=== PATIENT | female | born 1940 | race Caucasian/White ===

== ENCOUNTER → 2016-03-19 | Day surgery (SDC) | payer OTHER, BC ==
[2016-03-12 12:42] VITALS: Ht 174 cm; Wt 79.5 kg
[~2016-03-19] VITALS: Ht 174 cm; Wt 79.5 kg
[~2016-03-19] MED LIST: 500ML BSS 0.3ML EPI 1:1000PF IRRIG ONE; ACETAMINOPHEN 325 MG TAB PO PRN; AMVISC PLUS 0.8ML SYRINGE INT OCU ONE; ASCO10003 PO; ASPCH81X PO; ATROPINE SULFATE 0.1 MG/ML 5ML SYR IV PRN; BSS FLUSH ONE; CALC-51 PO; CALC0.2510 PO; DOXY-300 PO; ENDOCOAT 0.85ML SYRINGE INT OCU ONE; EpHEDrine SULFATE INJ 50 MG/ML AMP IV PRN; EpINEphrine INJ 1MG/ML AMP 1 MG/ML AMP ONE; LACTATED RINGER'S 1000ML 500 ML IV SCH; LEVO75TA5 PO; LIDOCAINE 4% OP SOLN DROP CHARGE ONE; LIDOCAINE 4% OP SOLN DROP CHARGE OPL SCH; LIDOCAINE HCL 1% MPF 2 ML VIAL ONE; LOSA50TA6 PO; LOSARTAN POTASSIUM PO; MAGN400T6 PO; MIDAZOLAM HCL 1 MG/ML 2ML VIAL ONE; MIX: 4ML BSS 1ML EPI 1:1000 PF TOP ONE; MOXIFLOXACIN OPH SOLN PER DROP CHARGE ONE; MULT-506 PO; POVIDONE-IODINE OP SOLN 30 ML BTL ONE; PRED1SUS3 OPL; PROPARACAINE 0.5% OP SOLN PER DROP CHARGE OPL SCH; SYN50 PO; TOBRAMYCIN/DEXAMETHASONE OPH OINT PER APPLN CHARGE ONE; TRIA37.53 PO; ZNTT/150 PO
--- NOTE | 2016-03-19 06:39 | History & Physical Bridge - SC ---
H&P Re-Evaluation Bridge Note: I have examined the patient, reviewed the History & Physical and in the interval since the performance of the History & Physical I have noted the following changes of clinical significance: No changes noted
[2016-03-19] MEDS: PHENYLEPHRINE HCL 2.5% OP SOLN PER DROP CHARGE OPL SCH ×3 (06:52→07:02)
[2016-03-19] MEDS: CYCLOPENTOLATE HCL 1% OP SOLN PER DROP CHARGE OPL SCH ×3 (06:54→07:04)
[2016-03-19] MEDS: TROPICAMIDE 1% OP SOLN PER DROP CHARGE OPL SCH ×3 (06:55→07:03)
[2016-03-19] MEDS: MOXIFLOXACIN OPH SOLN PER DROP CHARGE OPL SCH ×3 (06:55→07:05)
[2016-03-19 08:08] VITALS: TEMP 36.7
--- NOTE | 2016-03-19 08:09 | [facility] Post Operative Brief Note ---
Immediate Operative Summary Operative Date Mar 19, 2016. Pre-Operative Diagnosis Left Eye Cataract Post-Operative Diagnosis same Procedure(s) Performed Left Cataract Phacoemulsification With Intraocular Lens Implant Surgeon Dr. Ferdinand Alanis Mfts Surgeon(s) 0 Estimated Blood Loss 0 Findings left cataract Specimens none Complication(s) None Disposition
--- NOTE | 2016-03-19 08:10 | [facility] Operative Report ---
Operative Report Phaco with monofocal IOL DATE OF OPERATION: 03/19/16 PREOPERATIVE DIAGNOSIS: Senile nuclear cataract, left eye POSTOPERATIVE DIAGNOSIS: Senile nuclear cataract, left eye PROCEDURE PERFORMED: Phacoemulsification with intraocular lens implantation, left eye SURGEON: Dr. Irving Alanis ANESTHESIA: Topical with 1% intracameral lidocaine and monitored anesthesia care COMPLICATIONS: None DESCRIPTION OF PROCEDURE: After positively identifying the patient both verbally and by wristband in the preoperative area, the left eye was marked as the operative eye. The patient was then brought back to the operating room by the anesthesia and nursing staff where they were given a drop of Lidocaine and betadine into the operative eye. They were then sterilely prepped and draped in the standard fashion typical for ophthalmic surgery. Steri-strips were placed along the upper eyelids to keep the lashes back, and a lid speculum was placed into the operative eye. At this point, a documented time out was performed with members of the ophthalmology, nursing, and anesthesia staffs all agreeing upon the correct patient, correct location for surgery, correct procedure, and correct type and power of intraocular lens to be implanted. The microscope was then swung into position. First, a paracentesis wound was made using a sideport blade. Then, in sequence, 1% preservative-free lidocaine followed by Endocoat viscoelastic was injected into the anterior chamber. Next , the main incision was made with a keratome blade in triplanar fashion. A sharp cystotome was introduced into the eye and used to create a tear in the anterior capsule, which was directed into a continuous curvilinear capsulorrhexis using Utrata forceps. Hydrodissection was then performed with BSS on a flat-tip cannula. Next, the phacoemulsification handpiece was introduced into the eye and used to remove the nucleus in a [id number] fashion. This was done without complication and then the irrigation-aspiration handpiece was introduced into the eye and used to remove all remaining cortical and epinuclear material. Amvisc was then injected into the anterior chamber as well as into the capsular bag and using the lens injector system, an MX60 20.0 D lens, serial number [id number], and expiration date 09/2018 was injected into the capsular bag and rotated into the correct position. Next, the irrigation- aspiration handpiece was used to remove all remaining Amvisc. BSS was used to hydrate the main wound, and then BSS was injected into the paracentesis site to reach physiologic pressure and then the main wound was checked and found to be watertight. The patient was given drops of Vigamox and Tobradex ointment into the operative eye, and then the surrounding area was cleaned and dried. A clear plastic shield was placed over the eye and the patient was then sat up and taken from the operating room by the anesthesia staff having tolerated the procedure well and suffering no complications. DISPOSITION: The patient was returned to the recovery room in stable condition. I attest to the content of the Intraoperative Record and any orders documented therein. Any exceptions are noted below.
--- NOTE | 2016-03-19 08:11 | Discharge Instructions-SurgCtr ---
Discharge Instructions Visit Reason for Visit: Cataract Left Eye Discharge Discharge Diagnosis / Problem: left cataract Discharge Goals Goal(s): Decrease discomfort, Improve function Activity Recommendations Activity Limitations: as noted below Anesthesia . Post Anesthesia Instructions: If you have had General Anesthesia or IV Sedation: * Do not drive today. * Resume driving when surgeon permits. * Do not make important decisions or sign legal documents today. * Call surgeon for: 1. Temperature elevations greater than 101 degrees F. 2. Uncontrollable pain. 3. Excessive bleeding. 4. Persistent nausea and vomiting. 5. Medication intolerance (nausea, vomiting or rash). * For nausea and vomiting use only clear liquids such as: tea, soda, bouillon until nausea subsides, then gradually increase diet as tolerated. * If you have any concerns or questions, call your surgeon's office. If physician is unavailable and it is an emergency, call 911 or go to the nearest emergency room. . Instructions / Follow-Up Instructions / Follow-Up ACTIVITY RECOMMENDATIONS: * Light activities. * You may walk outside, read, watch television. * You may notice redness on the white part of the eye and some blurry vision - this is normal. MEDICATIONS: Resume previous medications unless instructed otherwise by your surgeon. Start all eye drops at 10 am today: * Eye drops (today): Prednisone - one drop in operative eye every 2 hours while awake Ofloxacin - one drop in operative eye every 2 hours while awake SPECIAL CARE INSTRUCTIONS: * Tape plastic shield over eye to sleep at night. Call your doctor at with any concerns or problems. FOLLOW UP VISIT: Follow-up with Dr Alanis at [facility] as scheduled. Diet Recommendations Home Diet: no limitations Procedures Procedures Performed: Left Cataract Phacoemulsification With Intraocular Lens Implant Pending Studies Studies pending at discharge: no Medical Emergencies . Who to Call and When: Medical Emergencies: If at any time you feel your situation is an emergency, please call 911 immediately. . Non-Emergent Contact Non-Emergency issues call your: Surgeon . . "Provider Documentation" section prepared by Irving Alanis.
--- NOTE | 2016-03-19 08:14 | Anesthesia Progress Nt - [facility] ---
Anesthesia Post Op Note Date & Time Mar 19, 2016 at 08:14 Vital Signs Pain Intensity: 0 Vital Signs Past 12 Hours Date Time Temp Pulse Resp B/P Pulse Ox O2 Delivery O2 Flow Rate FiO2 03/19/16 06:44 36.7 53 16 144/85 96 Room Air Notes Mental Status: alert / awake / arousable, participated in evaluation Pt Amnestic to Procedure: Yes Nausea / Vomiting: adequately controlled Pain: adequately controlled Airway Patency, RR, SpO2: stable & adequate BP & HR: stable & adequate Hydration State: stable & adequate Anesthetic Complications: no major complications apparent
[2016-03-19 08:30] VITALS: BP 138/60; PULSE 62; O2SAT 97
== END | disposition home or self-care (01) ==
LOC: X.SURG 06:26
PROVIDERS: ATTEND Ophthalmology
DX: H25.12 Age-related nuclear cataract, left eye (principal); H04.129 Dry eye syndrome of unspecified lacrimal gland; I10 Essential (primary) hypertension; M19.90 Unspecified osteoarthritis, unspecified site; I51.9 Heart disease, unspecified; E07.9 Disorder of thyroid, unspecified; I34.8 Other nonrheumatic mitral valve disorders; Z98.51 Tubal ligation status; Z83.518 Family history of other specified eye disorder

== ENCOUNTER → 2016-04-09 | Day surgery (SDC) | payer OTHER, BC ==
[2016-03-27 14:45] VITALS: Ht 174 cm; Wt 79.5 kg
[~2016-04-09] VITALS: Ht 174 cm; Wt 79.5 kg
[~2016-04-09] MED LIST changes: -EpHEDrine SULFATE INJ 50 MG/ML AMP IV PRN; -LIDOCAINE 4% OP SOLN DROP CHARGE OPL SCH; +LIDOCAINE 4% OP SOLN DROP CHARGE OPR SCH; -LOSARTAN POTASSIUM PO; -PROPARACAINE 0.5% OP SOLN PER DROP CHARGE OPL SCH; +PROPARACAINE 0.5% OP SOLN PER DROP CHARGE OPR SCH
[2016-04-09] MEDS: PHENYLEPHRINE HCL 2.5% OP SOLN PER DROP CHARGE OPR SCH ×3 (06:40→06:49)
[2016-04-09] MEDS: TROPICAMIDE 1% OP SOLN PER DROP CHARGE OPR SCH ×3 (06:40→06:50)
[2016-04-09] MEDS: CYCLOPENTOLATE HCL 1% OP SOLN PER DROP CHARGE OPR SCH ×3 (06:41→06:51)
[2016-04-09] MEDS: MOXIFLOXACIN OPH SOLN PER DROP CHARGE OPR SCH ×3 (06:42→06:52)
--- NOTE | 2016-04-09 07:26 | [facility] Post Operative Brief Note ---
Immediate Operative Summary Operative Date Apr 09, 2016. Pre-Operative Diagnosis Cataract Right Eye Post-Operative Diagnosis Same Procedure(s) Performed Right Cataract Phacoemulsification With Intraocular Lens Implant Surgeon Dr. Alanis Mechanical Product Engineer Surgeon(s) None Estimated Blood Loss None Findings right cataract Specimens None Complication(s) None Disposition
--- NOTE | 2016-04-09 07:27 | [facility] Operative Report ---
Operative Report Phaco with monofocal IOL DATE OF OPERATION: 04/09/16 PREOPERATIVE DIAGNOSIS: Senile nuclear cataract, right eye POSTOPERATIVE DIAGNOSIS: Senile nuclear cataract, right eye PROCEDURE PERFORMED: Phacoemulsification with intraocular lens implantation, right eye SURGEON: Dr. Irving Alanis ANESTHESIA: Topical with 1% intracameral lidocaine and monitored anesthesia care COMPLICATIONS: None DESCRIPTION OF PROCEDURE: After positively identifying the patient both verbally and by wristband in the preoperative area, the right eye was marked as the operative eye. The patient was then brought back to the operating room by the anesthesia and nursing staff where they were given a drop of Lidocaine and betadine into the operative eye. They were then sterilely prepped and draped in the standard fashion typical for ophthalmic surgery. Steri-strips were placed along the upper eyelids to keep the lashes back, and a lid speculum was placed into the operative eye. At this point, a documented time out was performed with members of the ophthalmology, nursing, and anesthesia staffs all agreeing upon the correct patient, correct location for surgery, correct procedure, and correct type and power of intraocular lens to be implanted. The microscope was then swung into position. First, a paracentesis wound was made using a sideport blade. Then, in sequence, 1% preservative-free lidocaine followed by Endocoat viscoelastic was injected into the anterior chamber. Next , the main incision was made with a keratome blade in triplanar fashion. A sharp cystotome was introduced into the eye and used to create a tear in the anterior capsule, which was directed into a continuous curvilinear capsulorrhexis using Utrata forceps. Hydrodissection was then performed with BSS on a flat-tip cannula. Next, the phacoemulsification handpiece was introduced into the eye and used to remove the nucleus in a [id number]-hie-[id number] fashion. This was done without complication and then the irrigation-aspiration handpiece was introduced into the eye and used to remove all remaining cortical and epinuclear material. Amvisc was then injected into the anterior chamber as well as into the capsular bag and using the lens injector system, an MX60 24.0 D lens, serial number [id number], and expiration date 07/2018 was injected into the capsular bag and rotated into the correct position. Next, the irrigation- aspiration handpiece was used to remove all remaining Amvisc. BSS was used to hydrate the main wound, and then BSS was injected into the paracentesis site to reach physiologic pressure and then the main wound was checked and found to be watertight. The patient was given drops of Vigamox and Tobradex ointment into the operative eye, and then the surrounding area was cleaned and dried. A clear plastic shield was placed over the eye and the patient was then sat up and taken from the operating room by the anesthesia staff having tolerated the procedure well and suffering no complications. DISPOSITION: The patient was returned to the recovery room in stable condition. I attest to the content of the Intraoperative Record and any orders documented therein. Any exceptions are noted below.
[2016-04-09 07:28] VITALS: TEMP 36.5
--- NOTE | 2016-04-09 07:28 | Discharge Instructions-SurgCtr ---
Discharge Instructions Visit Reason for Visit: Cataract Right Eye Discharge Discharge Diagnosis / Problem: right cataract Discharge Goals Goal(s): Decrease discomfort, Improve function Activity Recommendations Activity Limitations: as noted below Anesthesia . Post Anesthesia Instructions: If you have had General Anesthesia or IV Sedation: * Do not drive today. * Resume driving when surgeon permits. * Do not make important decisions or sign legal documents today. * Call surgeon for: 1. Temperature elevations greater than 101 degrees F. 2. Uncontrollable pain. 3. Excessive bleeding. 4. Persistent nausea and vomiting. 5. Medication intolerance (nausea, vomiting or rash). * For nausea and vomiting use only clear liquids such as: tea, soda, bouillon until nausea subsides, then gradually increase diet as tolerated. * If you have any concerns or questions, call your surgeon's office. If physician is unavailable and it is an emergency, call 911 or go to the nearest emergency room. . Instructions / Follow-Up Instructions / Follow-Up ACTIVITY RECOMMENDATIONS: * Light activities. * You may walk outside, read, watch television. * You may notice redness on the white part of the eye and some blurry vision - this is normal. MEDICATIONS: Resume previous medications unless instructed otherwise by your surgeon. Start all eye drops at 9:30 am today: * Eye drops (today): Prednisone - one drop in operative eye every 2 hours while awake Ofloxacin - one drop in operative eye every 2 hours while awake SPECIAL CARE INSTRUCTIONS: * Tape plastic shield over eye to sleep at night. Call your doctor at with any concerns or problems. FOLLOW UP VISIT: Follow-up with Dr Alanis at [facility] as scheduled. Diet Recommendations Home Diet: no limitations Procedures Procedures Performed: Right Cataract Phacoemulsification With Intraocular Lens Implant Pending Studies Studies pending at discharge: no Medical Emergencies . Who to Call and When: Medical Emergencies: If at any time you feel your situation is an emergency, please call 911 immediately. . Non-Emergent Contact Non-Emergency issues call your: Surgeon . . "Provider Documentation" section prepared by Irving Alanis.
--- NOTE | 2016-04-09 07:45 | Anesthesia Progress Nt - [facility] ---
Anesthesia Post Op Note Date & Time Apr 09, 2016 at 07:45 Vital Signs Pain Intensity: 0 Vital Signs Past 12 Hours Date Time Temp Pulse Resp B/P Pulse Ox O2 Delivery O2 Flow Rate FiO2 04/09/16 07:28 36.5 48 20 112/75 96 Room Air 04/09/16 06:30 36.6 61 20 135/84 96 Room Air Notes Mental Status: alert / awake / arousable, participated in evaluation Pt Amnestic to Procedure: Yes Nausea / Vomiting: adequately controlled Pain: adequately controlled Airway Patency, RR, SpO2: stable & adequate BP & HR: stable & adequate Hydration State: stable & adequate Anesthetic Complications: no major complications apparent
[2016-04-09 07:52] VITALS: BP 129/69; PULSE 54; O2SAT 97
== END | disposition home or self-care (01) ==
LOC: X.SURG 06:04
PROVIDERS: ATTEND Ophthalmology
DX: H25.11 Age-related nuclear cataract, right eye (principal); Z98.42 Cataract extraction status, left eye; H17.9 Unspecified corneal scar and opacity; H04.129 Dry eye syndrome of unspecified lacrimal gland; I10 Essential (primary) hypertension; I34.8 Other nonrheumatic mitral valve disorders; M19.90 Unspecified osteoarthritis, unspecified site; E07.9 Disorder of thyroid, unspecified; Z98.890 Other specified postprocedural states; Z98.51 Tubal ligation status

== ENCOUNTER → 2016-08-18 | Outpatient (CLI) | payer OTHER, BC ==
[~2016-08-18] MED LIST changes: -500ML BSS 0.3ML EPI 1:1000PF IRRIG ONE; -ACETAMINOPHEN 325 MG TAB PO PRN; -AMVISC PLUS 0.8ML SYRINGE INT OCU ONE; -ATROPINE SULFATE 0.1 MG/ML 5ML SYR IV PRN; -BSS FLUSH ONE; -ENDOCOAT 0.85ML SYRINGE INT OCU ONE; -EpINEphrine INJ 1MG/ML AMP 1 MG/ML AMP ONE; -LACTATED RINGER'S 1000ML 500 ML IV SCH; -LIDOCAINE 4% OP SOLN DROP CHARGE ONE; -LIDOCAINE 4% OP SOLN DROP CHARGE OPR SCH; -LIDOCAINE HCL 1% MPF 2 ML VIAL ONE; -MIDAZOLAM HCL 1 MG/ML 2ML VIAL ONE; -MIX: 4ML BSS 1ML EPI 1:1000 PF TOP ONE; -MOXIFLOXACIN OPH SOLN PER DROP CHARGE ONE; -POVIDONE-IODINE OP SOLN 30 ML BTL ONE; -PROPARACAINE 0.5% OP SOLN PER DROP CHARGE OPR SCH; -TOBRAMYCIN/DEXAMETHASONE OPH OINT PER APPLN CHARGE ONE
--- NOTE | 2016-08-18 15:32 | DIAGNOSTIC IMAGING REPORT ---
CHEST 2 VIEWS ROUTINE CLINICAL HISTORY: CRF pain. Edema. COMPARISON STUDY: None 04/04/2014 FINDINGS: Small fixed hernia. Lungs are clear. Diaphragms smooth. IMPRESSION: Small fixed hiatal hernia. Otherwise negative study Electronically signed by: John Pérez M.D. 08/18/2016 3:31 PM Dictated Date/Time: 08/18/2016 3:28 PM
== END | disposition home or self-care (01) ==
LOC: C.RADBC 15:15
PROVIDERS: ATTEND Nurse Practitioner
DX: R60.0 Localized edema (principal); N18.9 Chronic kidney disease, unspecified; K44.9 Diaphragmatic hernia without obstruction or gangrene

== ENCOUNTER → 2016-09-26 | Outpatient (CLI) | payer OTHER, BC ==
--- NOTE | 2016-09-26 16:31 | DIAGNOSTIC IMAGING REPORT ---
BILATERAL LOWER EXTREMITY VENOUS DOPPLER HISTORY: BILATERAL EDEMA OF LOWER EXTREMITY COMPARISON STUDY: None. FINDINGS: There is normal compressibility, flow, and augmentation within the bilateral lower extremity deep venous systems. Evaluation of the calf vessels however is slightly limited secondary to body habitus. IMPRESSION: 1. No DVT within the right or left lower extremity. 2. Limited visualization of the calf vessels secondary to body habitus. Electronically signed by: Robe Cox M.D. 09/26/2016 4:29 PM Dictated Date/Time: 09/26/2016 4:28 PM
== END | disposition home or self-care (01) ==
LOC: C.ULTR 15:47
PROVIDERS: ATTEND Internal Medicine Hematology & Oncology
DX: R60.0 Localized edema (principal); D50.9 Iron deficiency anemia, unspecified

== ENCOUNTER → 2016-09-30 | Outpatient (CLI) | payer OTHER, BC ==
--- NOTE | 2016-09-30 15:31 | DIAGNOSTIC IMAGING REPORT ---
CT SCAN OF THE ABDOMEN AND PELVIS WITHOUT IV CONTRAST CLINICAL HISTORY: Anemia. COMPARISON STUDY: Pelvic MRI dated 02/24/2013. TECHNIQUE: CT scan of the abdomen and pelvis is performed from the lung bases to the proximal femora. Images are reviewed in the axial, sagittal, and coronal planes. IV contrast was not administered for this examination as per the front clinician. Note that the examination was performed in suboptimal fashion without IV contrast. Oral contrast was utilized. Automated dose control exposure was utilized. A dose lowering technique was utilized adhering to the principles of ALARA. CT DOSE: 756.31 mGycm FINDINGS: Lung bases: The heart is normal in size and without pericardial effusion. The lung bases are clear. Liver: The unenhanced liver is normal in size, contour, and attenuation. There is no intrahepatic biliary ductal dilatation. Gallbladder: Unremarkable. Spleen: Normal in size and attenuation. Pancreas: Moderately atrophic and grossly unremarkable. Adrenal glands: Unremarkable. Kidneys: The unenhanced kidneys are atrophic and without hydronephrosis. There are no renal calculi identified. A 1.4 cm right renal cyst is identified. Additional scattered subcentimeter cortical hypodensities are suggested. These also likely represent cysts but are too small for definitive characterization. Abdominal vasculature: The abdominal aorta is normal in course and caliber noting mild atherosclerotic calcification. Stomach and bowel: There is a moderate to large hiatal hernia with over 1/3 of the stomach located in the thoracic cavity. The duodenum is normal in configuration. No bowel obstruction is seen. There is moderate colonic diverticulosis without CT evidence of acute diverticulitis. The appendix is well-visualized and normal. Peritoneum: There is no intraperitoneal free air or abdominal ascites. Lymphadenopathy: None. Pelvic viscera: The bladder is normal as visualized. The uterus appears heterogeneous and fibroids are suggested. Subcentimeter hypodensities are noted in the left ovary. These were also seen on the 2013 pelvic MRI. Surgical clips are noted in the pelvis. Skeletal structures: The skeletal structures are osteopenic. There is mild lumbosacral spondylosis. Sclerotic change is noted in the sacroiliac joints and pubic symphysis. No lytic or blastic lesions are seen. IMPRESSION: 1. There are no acute infectious or inflammatory findings in the abdomen or pelvis. 2. Moderate colonic diverticulosis without CT evidence of acute diverticulitis. 3. Moderate to large hiatal hernia. 4. Suspect uterine fibroids. This is similar appearance to the 2013 pelvic MRI where this finding was better characterized. 5. The kidneys are atrophic and without hydronephrosis. 6. Additional findings as above. Electronically signed by: Rafa Buchanan M.D. 09/30/2016 3:30 PM Dictated Date/Time: 09/30/2016 3:24 PM
== END | disposition home or self-care (01) ==
LOC: C.CTS 15:05
PROVIDERS: ATTEND Internal Medicine Hematology & Oncology
DX: D50.9 Iron deficiency anemia, unspecified (principal); K57.30 Diverticulosis of large intestine without perforation or abscess without bleeding; K44.9 Diaphragmatic hernia without obstruction or gangrene; N26.1 Atrophy of kidney (terminal)

== ENCOUNTER → 2017-02-04 | Day surgery (SDC) | payer OTHER, BC ==
[~2017-02-04] VITALS: Ht 172.7 cm; Wt 79.5 kg
[~2017-02-04] MED LIST changes: +FENTANYL CITRATE INJ 50 MCG/1 ML 2 ML VIAL IV ONE; +FENTANYL CITRATE INJ 50 MCG/1 ML 2 ML VIAL ONE; +LIDOCAINE HCL 1% 20 ML VIAL INJ ONE; +LIDOCAINE HCL 1% 20 ML VIAL ONE; +LIDOCAINE/EPINEPHRINE 1% INJ 50 ML VIAL ONE; +MIDAZOLAM HCL 1 MG/ML 2ML VIAL IV ONE; +MIDAZOLAM HCL 1 MG/ML 2ML VIAL ONE; +ORM MISCELLANEOUS MED XX ONE; +SODIUM BICARB 8.4% INJ 50 MEQ/50 ML SYR IV ONE; +SODIUM CHLORIDE 0.9% 1000ML IV SCH
[2017-02-04 07:50] VITALS: BP 141/77; PULSE 74; TEMP 36.9; O2SAT 97; Ht 172.7 cm; Wt 79.5 kg
--- NOTE | 2017-02-04 08:53 | Procedure Note ---
Pre-Mod Sedation Assessment General Date of Moderate Sedation: Feb 04, 2017. Vital Signs: Vital Signs Past 12 Hours Date Time Temp Pulse Resp B/P (MAP) Pulse Ox O2 Delivery O2 Flow Rate FiO2 02/04/17 07:50 36.9 74 18 141/77 (98) 97 Room Air Review Cardiovascular: regular rate, rhythm, no edema Abdomen: normal bowel sounds, non tender Lungs: chest non-tender, lungs clear Airway Class: III Pre-Sedation Airway Assessment Oral Cavity: Capped Teeth, WNL Short Thick Neck: No Hx of Sleep Apnea: No Smoking Status: Never Smoker Mallampati Classification: Class III ASA Classification: Class II Procedure Planning Contraindications-for Mod Sed: None Yes Notes The planned sedation has been discussed with the patient and consent obtained. I have identified the patient, determined the appropriateness of sedation and have assessed the patient immediately prior to the procedure. All medicine(s) and interventions are by my order.
[2017-02-04 09:01] VITALS: BP 141/77; PULSE 74; TEMP 36.9; O2SAT 97
--- NOTE | 2017-02-04 10:34 | Procedure Note ---
Post-Mod Sedation Assessment General Date of Moderate Sedation Feb 04, 2017. Vital Signs: Vital Signs Past 12 Hours Date Time Temp Pulse Resp B/P (MAP) Pulse Ox O2 Delivery O2 Flow Rate FiO2 02/04/17 09:01 36.9 74 18 141/77 97 Room Air 02/04/17 07:50 36.9 74 18 141/77 (98) 97 Room Air Review - Discharge Criteria Vital Signs Stable: Yes Alert/Oriented/Conversant: Yes Returned to Baseline Mental St: Yes Nausea Absent/Minimal: Yes Pain/Discomfort/Absent/Minimal: Yes Normal/Baseline Respirations: Yes Active Bleeding?: No Pt Received D/C Instructions: N/A Prescriptions Given: None Specific Proced. D/C Criteria Distal Pulses Present (Cardiac: N/A Groin site assessed-Card Cath: N/A Voided Prior To Discharge: N/A Discharged Patients Adult Escort/Transportation: Yes
--- NOTE | 2017-02-04 10:38 | [facility] Operative Report ---
Operative Report Operative Date Feb 04, 2017. Pre-Operative Diagnosis venous insufficiency Post-Operative Diagnosis same Procedure(s) Performed Bilateral Greater Saphenous Vein Radiofrequency Ablation, Moderate Concious Sedation [address] Jose Luna [place] Maintenance Technician Surgeon(s) none Estimated Blood Loss 7 ml Findings Dilated bilateral GSVs Specimens none Drains None Anesthesia Moderate Complication(s) None Disposition Recovery Room / PACU Indications Venous insufficiency, Edema and venous claudication Description of Procedure -- Bilateral GSV RFA -- US guided access Left GSV below the knee. Catheter inserted, 3cm from SFJ. Tumescent injected. US confirmed not in deep system. 4:30, 13 cycles of RFA Left GSV. No complications. Patient tolerated well. US confirmed no DVT post procedure. US guided access Right GSV below the knee. Catheter inserted, 3cm from SFJ. Tumescent injected. US confirmed not in deep system. 4:40, 14 cycles of RFA right GSV. No complications. Patient tolerated well. US confirmed no DVT post procedure. I attest to the content of the Intraoperative Record and any orders documented therein. Any exceptions are noted below.
--- NOTE | 2017-02-04 10:39 | Discharge Instructions ---
Discharge Instructions Procedure Procedure Date: Feb 04, 2017. Reason for Visit: Chronic Venous Insufficiency. Discharge Discharge Date: Feb 04, 2017. Discharge Diagnosis: Chronic venous insufficiency Last Recorded Wt (Kilograms): 79.5 Anesthesia Post Anesthesia Instructions: If you have had General Anesthesia or IV Sedation: * Do not drive today. * Resume driving when surgeon permits. * Do not make important decisions or sign legal documents today. * Call surgeon for: 1. Temperature elevations greater than 101 degrees F. 2. Uncontrollable pain. 3. Excessive bleeding. 4. Persistent nausea and vomiting. 5. Medication intolerance (nausea, vomiting or rash). * For nausea and vomiting use only clear liquids such as: tea, soda, bouillon until nausea subsides, then gradually increase diet as tolerated. * If you have any concerns or questions, call your surgeon's office. If physician is unavailable and it is an emergency, call 911 or go to the nearest emergency room. Instructions Activity Recommendations: limitations as noted below, resume regular activity Recommended Home Diet: resume previous diet Allergies: Coded Allergies: NSAIDs (Verified Adverse Reaction, Mild, INCREASE CREATININE LEVEL, ) TOLD NOT TO TAKE DUE TO INCREASING CREATININE LEVEL Sulfamethoxazole w/Trimethoprim (Verified Adverse Reaction, Mild, INCREASE CREATININE LEVEL, 02/04/17) ADVISED NOT TO TAKE, INCREASE CREATININE LEVEL Anastrozole (Verified Adverse Reaction, Unknown, hip pain, 02/04/17) Tamoxifen (Verified Adverse Reaction, Unknown, MULTIPLE UTERINE PROBLEMS, 02/04/17) Follow Up Additional Instructions: Follow instructions as outlined in paperwork from Dr. Luna' office. Up walking today. Follow up Ultrasound as scheduled. ALISE wrap for 48 hours After ALISE wrap removed, wear compression stockings indefinitely. Any severe pain, present to the emergency room for evaluation for DVT. Follow-up with: As scheduled. Caro Moreland Recommendations: Call your doctor if: * Temperature above 101 degrees * Pain not relieved by pain medicine ordered * There is increased drainage or redness from any incision * You have any unanswered questions or concerns. Your Doctors Instructions noted above were prepared by provider Nic Luna. Patient Signature Section: Patient Instructions Signature Page Leisa Clintonaugustine Patient (or Guardian) Signature/Date: I have read and understand the instructions given to me by my caregivers. Caregiver/RN/Doctor Signature/Date: The above-named patient and/or guardian has received patient instructions on this date. + Original Patient Signature Page (only) stays with chart. Please make copy for patient.
[2017-02-04 10:45] VITALS: BP 129/63; PULSE 70; TEMP 36.5; O2SAT 93
== END | disposition home or self-care (01) ==
LOC: C.ACU 07:20
PROVIDERS: ATTEND Internal Medicine Interventional Cardiology
DX: I87.2 Venous insufficiency (chronic) (peripheral) (principal); R60.0 Localized edema; E78.5 Hyperlipidemia, unspecified; I10 Essential (primary) hypertension; E03.9 Hypothyroidism, unspecified; Z86.69 Personal history of other diseases of the nervous system and sense organs; Z98.51 Tubal ligation status; Z90.89 Acquired absence of other organs; Z90.10 Acquired absence of unspecified breast and nipple; Z98.890 Other specified postprocedural states

== ENCOUNTER → 2017-02-12 | Outpatient (CLI) | payer OTHER, BC ==
[~2017-02-12] MED LIST changes: -CALC0.2510 PO; -DOXY-300 PO; -FENTANYL CITRATE INJ 50 MCG/1 ML 2 ML VIAL IV ONE; -FENTANYL CITRATE INJ 50 MCG/1 ML 2 ML VIAL ONE; -LIDOCAINE HCL 1% 20 ML VIAL INJ ONE; -LIDOCAINE HCL 1% 20 ML VIAL ONE; -LIDOCAINE/EPINEPHRINE 1% INJ 50 ML VIAL ONE; -MIDAZOLAM HCL 1 MG/ML 2ML VIAL IV ONE; -MIDAZOLAM HCL 1 MG/ML 2ML VIAL ONE; -ORM MISCELLANEOUS MED XX ONE; -PRED1SUS3 OPL; -SODIUM BICARB 8.4% INJ 50 MEQ/50 ML SYR IV ONE; -SODIUM CHLORIDE 0.9% 1000ML IV SCH; -ZNTT/150 PO
--- NOTE | 2017-02-12 14:28 | MAMMOGRAPHY REPORT ---
BILATERAL DIGITAL SCREENING MAMMOGRAM TOMOSYNTHESIS WITH CAD: 02/12/2017 CLINICAL HISTORY: Asymptomatic. Personal history of breast cancer. TECHNIQUE: Breast tomosynthesis in addition to standard 2D mammography was performed. Current study was also evaluated with a Computer Aided Detection (CAD) system. COMPARISON: Comparison is made to exams dated: 02/11/2016 mammogram, 02/07/2015 mammogram, 02/01/2014 mammogram, 01/25/2014 breast MRI, 01/26/2013 mammogram, and 01/21/2012 mammogram - [facility]. BREAST COMPOSITION: There are scattered areas of fibroglandular density in both breasts. FINDINGS: No suspicious masses, calcifications, or areas of architectural distortion are noted in ei ther breast. There has been no significant interval change compared to prior exams. There are stable postsurgical changes in the right lateral posterior breast from prior lumpectomy. Mild diffuse righ t breast skin thickening is stable and is likely related to prior radiation therapy. Bilateral benig n appearing calcifications are not significantly changed. IMPRESSION: ACR BI-RADS CATEGORY 2: BENIGN There is no mammographic evidence of malignancy. A 1 year screening mammogram is recommended. The pa tient will receive written notification of the results. Approximately 10% of breast cancers are not detected with mammography. A negative mammographic report should not delay biopsy if a clinically suggestive mass is present. Radha Luna M.D. /:02/12/2017 09:38:43 Front Counter Attendant: Sadie Layne, [facility] letter sent: Normal 1/2 BI-RADS Code: ACR BI-RADS Category 2: Benign
== END | disposition home or self-care (01) ==
LOC: C.MAMM 08:42
PROVIDERS: ATTEND Family Medicine
DX: Z12.31 Encounter for screening mammogram for malignant neoplasm of breast (principal)

== ENCOUNTER → 2017-05-15 | Day surgery (SDC) | payer OTHER, BC ==
[2017-05-04 11:49] VITALS: Ht 174 cm; Wt 81.8 kg
[~2017-05-15] VITALS: Ht 174 cm; Wt 81.8 kg
[~2017-05-15] MED LIST changes: +ACETAMINOPHEN 325 MG TAB PO PRN; +ARTIFICIAL TEARS OP OINT 3.5 GM TUBE ONE; +ATROPINE SULFATE 0.1 MG/ML 5ML SYR IV PRN; +BSS FLUSH ONE; +CEFAZOLIN 2000MG IV PUSH 15 ML IV SCH; +DEXAMETHASONE SOD INJ 4 MG/ML VIAL ONE; +ERYTHROMYCIN OP OINT 5 MG/GM 3.5 GM TUBE ONE; +EpHEDrine SULFATE 50MG/5ML SYR ONE; +EpHEDrine SULFATE INJ 50 MG/ML AMP IV PRN; +FENTANYL CITRATE INJ 50 MCG/1 ML 2 ML VIAL IV PRN; +FENTANYL CITRATE INJ 50 MCG/1 ML 2 ML VIAL ONE; +GENTIAN VIOLET TOP SOLN DROP CHARGE ONE; +HYDROmorphone INJ 1 MG/ML SYR IV PRN; +LACTATED RINGER'S 1000ML 1,000 ML IV SCH; +LIDOCAINE HCL 2% 2 ML VIAL (20MG/ML) ONE; +LIDOCAINE/EPINEPHRINE 1% 20 ML VIAL ONE; +METOCLOPRAMIDE HCL INJ 5 MG/ML 2 ML VIAL IV PRN; +MIDAZOLAM HCL 1 MG/ML 2ML VIAL ONE; +ONDANSETRON INJ 2 MG/ML 2 ML VIAL IV PRN; +ONDANSETRON INJ 2 MG/ML 2 ML VIAL ONE; +OXYCODONE/ACETAMINOPHEN 5-325 TAB PO PRN; +POVIDONE-IODINE OP SOLN 30 ML BTL ONE; +PRLSR20 PO; +PROPOFOL IV EMULSION 10 MG/ML 20 ML VIAL IV ONE; +RIVA1.5T PO; +SIMV20TA2 PO; +SODIUM CHLORIDE 0.9% 1000ML 1,000 ML IV SCH; +VALA500T60 PO
--- NOTE | 2017-05-15 08:13 | [facility] Post Operative Brief Note ---
Immediate Operative Summary Operative Date May 15, 2017. Pre-Operative Diagnosis Dermatochalasis Post-Operative Diagnosis same Procedure(s) Performed Bilateral Upper Blepharoplasty Surgeon Dr. Kerri Jacobs Leasing Professional Surgeon(s) Rayne Jack PA-C, Cheri Ruth. MSIII Estimated Blood Loss 1 mL Findings Consistent with Post-Op Diagnosis Specimens None Anesthesia Type General Complication(s) none Disposition Disposition: Recovery Room / PACU
--- NOTE | 2017-05-15 08:18 | Discharge Instructions ---
Discharge Instructions Date of Service May 15, 2017. Admission Reason for Admission: Dermatochalasis Discharge Discharge Diagnosis / Problem: dermatochalasis Discharge Goals Goal(s): Decrease discomfort, Improve function Activity Recommendations Activity Limitations: per Instructions/Follow-up section ACTIVITY RECOMMENDATIONS: __Normal activities _x_No bending, lifting or straining __No driving __Driving allowed when you are off pain medications _x_Walking permitted __You should have help at home for ___ days DRESSINGS: _x_No dressings required __Keep dressings dry/in place until first office visit __Remove dressings ___ and leave dressings off _x_Apply ice _at least 3 days- 20 minutes on/ 20 minutes off while awake __Remove dressings and reapply garment _x_Apply antibiotic ointment (prescribed to you at your pre-op appointment) to wounds 3-4 times/day for 10 days BATHING: __Keep dressings dry x__Sponge bathing permitted _x_Showering permitted ON THURSDAY _x_No swimming, hot tubs or soaking in a tub MEDICATIONS: Resume previous medications unless instructed otherwise by your surgeon. _x_Do not use aspirin, Motrin, Advil or Ibuprofen as these may promote bleeding. Please use Tylenol. _x_Prescription(s) provided: pain medication and antibiotic ointment were prescribed to you at your last office visit OTHER INSTRUCTIONS: __Record drain output 2-3 times per day SPECIAL CARE INSTRUCTIONS: * It is normal to have a mild fever after surgery. If your temperature is higher than 101.5 degrees F, please call the office at [phone]. * Constipation is a typical side effect of pain medication. An over-the- counter stool softener will help relieve this. * Leaking around surgical drains may occur and should not cause concern. Sometimes these drains become clogged. If this happens, remove the bulb and milk the clot out of the tube, then replace the bulb. * Drainage from wounds after liposuction is normal and should be expected. Garments will become soiled. You should protect furniture and bedding. This drainage should mostly subside within 2-3 days. Leave garments in place unless instructed to remove them. * If you have unusual drainage from a wound or are concerned you have an infection or have any questions or concerns, please call the office at [phone]. FOLLOW UP VISIT: If not already scheduled, please call the office, , when you return home after surgery to schedule an appointment to be seen in _5-7__ days. . Current Hospital Diet Patient's current hospital diet: Discharge Diet Recommended Diet: Regular Diet Procedures Procedures Performed: Bilateral Upper Blepharoplasty Pending Studies Studies pending at discharge: no Medical Emergencies . Who to Call and When: Medical Emergencies: If at any time you feel your situation is an emergency, please call 911 immediately. . Non-Emergent Contact Non-Emergency issues call your: Primary Care Provider, Surgeon . "Provider Documentation" section prepared by Rayne Jack. . [place] Drug Monitoring Program Search Results: no issues identified
[2017-05-15 09:17] VITALS: TEMP 36.3
--- NOTE | 2017-05-15 09:56 | Anesthesia Progress Nt - [facility] ---
Anesthesia Post Op Note Date & Time May 15, 2017 at 09:56 Vital Signs Pain Intensity: 0 Vital Signs Past 12 Hours Date Time Temp Pulse Resp B/P (MAP) Pulse Ox O2 Delivery O2 Flow Rate FiO2 05/15/17 09:17 36.3 76 18 128/75 (92) 95 Room Air 05/15/17 09:11 121/77 05/15/17 09:10 70 19 05/15/17 09:10 73 19 94 05/15/17 09:07 36.3 78 20 121/77 95 Room Air 05/15/17 09:06 126/75 05/15/17 09:05 70 18 05/15/17 09:05 69 18 99 05/15/17 09:01 122/78 05/15/17 09:00 71 8 100 05/15/17 09:00 71 8 05/15/17 08:56 119/77 05/15/17 08:55 86 19 05/15/17 08:55 76 19 96 05/15/17 08:51 126/82 05/15/17 08:50 88 29 91 05/15/17 08:50 93 29 05/15/17 08:46 124/77 05/15/17 08:45 68 18 98 05/15/17 08:45 69 18 05/15/17 08:41 126/65 05/15/17 08:40 87 19 98 05/15/17 08:40 80 19 05/15/17 08:36 133/72 05/15/17 08:35 95 17 98 05/15/17 08:35 87 17 05/15/17 08:31 132/77 05/15/17 08:30 95 28 100 05/15/17 08:30 93 28 05/15/17 08:26 132/78 05/15/17 08:25 94 16 100 05/15/17 08:25 89 16 05/15/17 08:20 95 13 05/15/17 08:20 95 13 133/78 99 05/15/17 08:20 36.1 95 16 133/78 99 Mask 6 05/15/17 06:30 36.5 72 16 132/85 (101) 95 Room Air Notes Mental Status: alert / awake / arousable, participated in evaluation Pt Amnestic to Procedure: Yes Nausea / Vomiting: adequately controlled Pain: adequately controlled Airway Patency, RR, SpO2: stable & adequate BP & HR: stable & adequate Hydration State: stable & adequate Anesthetic Complications: no major complications apparent
[2017-05-15 09:58] VITALS: BP 123/84; PULSE 65; O2SAT 95
--- NOTE | 2017-05-15 16:31 | OPERATIVE REPORT ---
DATE OF OPERATION: 05/15/2017 PREOPERATIVE DIAGNOSIS: Bilateral upper eyelid dermatochalasis. POSTOPERATIVE DIAGNOSIS: Same. PROCEDURE: Bilateral noncosmetic upper lid blepharoplasty. SURGEON: Dr. Zita Jacobs. CHORAL DIRECTOR: Rayne Jack PA-C. ANESTHESIA: General. COMPLICATIONS: None. 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 She felt that her excess skin was interfering with daily activities such as driving and sewing. 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 She failed her visual field testing and had a substantial improvement with taping of her lids and therefore was felt to be a good candidate for noncosmetic upper blepharoplasty. BRIEF DESCRIPTION OF THE PROCEDURE: The risks, benefits and alternatives of the procedure were explained to the patient who agreed and signed consent. She was identified and marked in the preoperative holding area. She was brought to the operating room where she was positioned supine and placed under anesthesia without incident. Surgical site was prepped and draped sterilely. A time-out procedure was performed. The surgical site markings were placed. The inferior incision was marked at 8 mm above the ciliary margin just at the supratarsal crease bilaterally. A trapezoidal shaped incision was marked, taking care not to cross the medial punctum medially and carrying the lateral aspect into the lateral canthal area into one of the gakona's feet. Superior portion of the incision was marked and this was marked 1 cm beneath the brow. Aj forceps was used to pinch the skin to ensure reasonable possibility of wound closure without lagophthalmos. Similar markings were applied on the right side. I began with the left side. I attempted to place corneal protectors but due to the small aperture of her lids, I was unable to place these. 1% lidocaine with epinephrine was used to anesthetize the upper lids bilaterally. I began with the left side. Incisions as described above were made using 15 blade scalpel. Skin was removed from the underlying orbicularis muscle in a lateral to medial direction using electrocautery taking care to provide hemostasis throughout dissection. Once the skin had been removed and hemostasis was achieved, I opened the orbital septum along the medial compartment. There was minimal return of fat and a very small resection of medial fat was undertaken. The 6-0 nylon sutures were used to reapproximate the incisions beginning in the pupillary line and then closing in a lateral to medial direction. Once the procedure was completed, erythromycin ophthalmic ointment was placed to the incisions after the eyes were irrigated with balanced salt solution. An identical procedure was undertaken on the right side. The procedure was tolerated well. The patient was awakened and transferred to recovery in satisfactory condition. Estimated blood loss was 1 mL. Rayne Jack PA-C was present and scrubbed throughout the entire procedure and was instrumental in providing retraction as well as assisting in simultaneous wound closure. I attest to the content of the Intraoperative Record and any orders documented therein. Any exception s are noted below.
== END | disposition home or self-care (01) ==
LOC: X.SURG 06:08
PROVIDERS: ATTEND Plastic Surgery
DX: H02.833 Dermatochalasis of right eye, unspecified eyelid (principal); H02.836 Dermatochalasis of left eye, unspecified eyelid; I10 Essential (primary) hypertension; I48.92 Unspecified atrial flutter; I87.2 Venous insufficiency (chronic) (peripheral); E78.5 Hyperlipidemia, unspecified; E03.9 Hypothyroidism, unspecified; Z85.3 Personal history of malignant neoplasm of breast; Z90.10 Acquired absence of unspecified breast and nipple; Z98.51 Tubal ligation status; Z98.890 Other specified postprocedural states; Z88.1 Allergy status to other antibiotic agents; Z79.82 Long term (current) use of aspirin; Z79.01 Long term (current) use of anticoagulants; Z79.899 Other long term (current) drug therapy; Z82.3 Family history of stroke

== ENCOUNTER → 2017-06-08 | Outpatient (CLI) | payer OTHER, BC ==
[~2017-06-08] MED LIST changes: -ACETAMINOPHEN 325 MG TAB PO PRN; -ARTIFICIAL TEARS OP OINT 3.5 GM TUBE ONE; -ASPCH81X PO; -ATROPINE SULFATE 0.1 MG/ML 5ML SYR IV PRN; -BSS FLUSH ONE; -CEFAZOLIN 2000MG IV PUSH 15 ML IV SCH; -DEXAMETHASONE SOD INJ 4 MG/ML VIAL ONE; -ERYTHROMYCIN OP OINT 5 MG/GM 3.5 GM TUBE ONE; -EpHEDrine SULFATE 50MG/5ML SYR ONE; -EpHEDrine SULFATE INJ 50 MG/ML AMP IV PRN; -FENTANYL CITRATE INJ 50 MCG/1 ML 2 ML VIAL IV PRN; -FENTANYL CITRATE INJ 50 MCG/1 ML 2 ML VIAL ONE; -GENTIAN VIOLET TOP SOLN DROP CHARGE ONE; -HYDROmorphone INJ 1 MG/ML SYR IV PRN; -LACTATED RINGER'S 1000ML 1,000 ML IV SCH; -LIDOCAINE HCL 2% 2 ML VIAL (20MG/ML) ONE; -LIDOCAINE/EPINEPHRINE 1% 20 ML VIAL ONE; -METOCLOPRAMIDE HCL INJ 5 MG/ML 2 ML VIAL IV PRN; -MIDAZOLAM HCL 1 MG/ML 2ML VIAL ONE; -ONDANSETRON INJ 2 MG/ML 2 ML VIAL IV PRN; -ONDANSETRON INJ 2 MG/ML 2 ML VIAL ONE; -OXYCODONE/ACETAMINOPHEN 5-325 TAB PO PRN; -POVIDONE-IODINE OP SOLN 30 ML BTL ONE; -PROPOFOL IV EMULSION 10 MG/ML 20 ML VIAL IV ONE; -SODIUM CHLORIDE 0.9% 1000ML 1,000 ML IV SCH
--- NOTE | 2017-06-08 13:41 | DIAGNOSTIC IMAGING REPORT ---
BILATERAL KNEES 2 VIEWS EACH HISTORY: BILATERAL KNEE PAIN COMPARISON: None. FINDINGS: There is no fracture or dislocation. Faint chondrocalcinosis. Small bilateral knee effusions. Tiny patellar osteophytes. Cartilage spaces are maintained for age. No radiopaque foreign bodies. IMPRESSION: 1. Chondrocalcinosis. 2. Small bilateral knee effusions. 3. Mild patellofemoral osteoarthritis. Electronically signed by: Roly Dee M.D. 06/08/2017 1:39 PM Dictated Date/Time: 06/08/2017 1:37 PM
== END | disposition home or self-care (01) ==
LOC: C.RAD1850 13:16
PROVIDERS: ATTEND Family Medicine
DX: M25.569 Pain in unspecified knee (principal); M11.269 Other chondrocalcinosis, unspecified knee

== ENCOUNTER 2021-07-17 17:25 | Observation (INO) ==
[2021-07-17 19:07] LABS: Basophils # (auto) 0.02 K/uL (0-0.2); Basophils % (auto) 0.3 %; Eosinophils # (auto) 0.11 K/uL (0-0.5); Eosinophils % (auto) 1.6 %; Hematocrit (blood only) 39.7 % (37-47); Hemoglobin 13.5 g/dL (12.0-16.0); Immature Granulocytes # (auto) 0.01 K/uL (0.00-0.02); Immature Granulocytes % (auto) 0.1 %; Lymphocytes # (auto) 0.81 K/uL (1.2-3.4); Lymphocytes % (auto) 11.8 %; Mean Corpuscular Hemoglobin 35.5 pg (25-34); Mean Corpuscular Volume 104.5 fL (80-100); Monocytes # (auto) 0.44 K/uL (0.11-0.59); Monocytes % (auto) 6.4 %; Neutrophils # (auto) 5.47 K/uL (1.4-6.5); Neutrophils % (auto) 79.8 %; Platelet Count 175 K/uL (130-400); RDW Coefficient of Variation 14.5 % (11.5-14.5); RDW Standard Deviation 55.6 fL (36.4-46.3); White Blood Count 6.86 K/uL (4.8-10.8)
--- NOTE | 2021-07-17 19:09 | XRay Report ---
SINGLE VIEW CHEST CLINICAL HISTORY: Dyspnea. FINDINGS: An AP, portable, upright chest radiograph is compared to study dated 08/30/2020 and correlate d with chest CT dated 07/16/2021. There is a moderate to large hiatal hernia. The cardiomediastinal si lhouette is unremarkable. Foci of parenchymal scarring are seen throughout both lungs, greatest at th e apices. There is no lobar consolidation or large pleural effusion. No pneumothorax is seen. The ske letal structures are osteopenic. The bony thorax is grossly intact. IMPRESSION: 1. No acute cardiopulmonary abnormality is identified. No significant change from yesterday's chest C T. 2. Moderate to large hiatal hernia. 3. Foci of parenchymal scarring are again seen throughout both lungs. ACT 112: Negative or not required by law. Electronically signed by: Rafa Buchanan M.D. 07/17/2021 7:08 PM
[2021-07-17 19:16] LABS: INR 1.2 (0.9-1.1); Partial Thromboplastin Ratio 1.4; Partial Thromboplastin Time 38.5 Seconds (21.0-31.0); Prothrombin Time 12.4 Seconds (9.0-12.0)
[2021-07-17 19:23] LABS: Albumin Globulin Ratio 1.4 (0.9-2); BUN Creatinine Ratio 14.3 (10-20); Bilirubin,Total 0.6 mg/dl (0.2-1.0); Calcium 9.6 mg/dl (8.5-10.1); Creatinine Clr Calc Pharmacy 20.8 ml/min; Est GFR (African American) 24.8 ml/min; Est GFR (Non-African American) 21.4 ml/min; Globulin 2.9 gm/dl (2.5-4.0); Magnesium 1.4 mg/dl (1.7-2.4); Potassium 3.8 mmol/L (3.5-5.1); Total Protein 6.9 gm/dl (6.0-8.3)
[2021-07-17] MEDS ORDERED: SODIUM CHLORIDE 0.9% 1000ML 500 ML IV ONE (21:17)
[2021-07-17] MEDS ORDERED: MAGNESIUM SULFATE / D5W 1 GM/100 ML BAG IV STA (21:18)
--- NOTE | 2021-07-18 00:09 | History & Physical Report ---
Date of Service July 18, 2021 Assessment & Plan (1) Rigors: Plan: 81-year-old female with history of endometrial carcinoma on Keytruda and lenvatinib presenting with 2 days of chills and rigors. Unclear source of infection. Follow cultures Check procalcitonin Tylenol as needed for pain or fever (2) CKD (chronic kidney disease), stage III: Plan: Mild elevation of BUN and creatinine Hold potentially nephrotoxic agents Monitor renal function and I's/O (3) Endometrial cancer: Plan: Continue Keytruda and lenvatinib Continue Valcyte (4) HTN (hypertension): Plan: Chronic. Stable. Blood pressure = 102/69. Continue triamterene hydrochlorothiazide Continue to monitor (5) Dyslipidemia: Plan: Chronic. Stable on medications Continue simvastatin 20 mg p.o. nightly (6) Atrial flutter: Plan: Rate controlled Continue rivaroxaban Plan: FENLR at 100 mL/h x 2 L, magnesium repletion x3 g with repeat level in a.m., regular diet as tolerated ProphylaxisSCDs Codefull Dispoadmit to medical History of Present Illness Chief Complaint: Chills, diarrhea, shortness of breath Primary Care Provider: Yoli Laureano DO Mrs. Pabon is an 81-year-old female with history of endometrial cancer presently on Keytruda and lenvatinib therapy presenting with 2 days of chills and rigors. Patient reports that she had a CT scan performed 2 days ago for routine screening purposes. She first felt cold with some body shakes there but attributed it to the cold room in which she was waiting. After the study she returned home and went to bed at 8 PM. She woke at 11:00 PM with body shakes and chills. She is also had several episodes of watery diarrhea as well as shortness of breath. She denies fever and states that her body temperature is actually slightly lower than normal approximately 97.1. No additional complaints at this time. Patient did have a cystoscopy on 07/11/2021 with right retrograde pyelogram and stent exchange performed by urology. The procedure was well-tolerated without complications. In the ER she is afebrile, hemodynamically stable, no acute distress Allergies Allergy/AdvReac Type Severity Reaction Status Date / Time anastrozole AdvReac Intermediate Hip pain Verified 07/17/21 22:42 tamoxifen AdvReac Intermediate Uterine Verified 07/17/21 22:42 problems NSAIDS (Non-Steroidal AdvReac Mild Elevated Verified 07/17/21 22:42 Anti-Inflamma creatinine sulfamethoxazole AdvReac Mild Elevated Verified 07/17/21 22:42 creatinine trimethoprim AdvReac Mild Elevated Verified 07/17/21 22:42 creatinine Home Medications Medication Instructions Recorded Confirmed Type ascorbic acid (vitamin C) 1,000 mg 1 g PO QAM 03/27/18 07/17/21 History tablet (Vitamin C) levothyroxine 50 mcg tablet 50 mcg PO 2XWK 03/27/18 07/17/21 History levothyroxine 75 mcg tablet 75 mcg PO 5XWK 03/27/18 07/17/21 History magnesium oxide 400 mg PO QAM 03/27/18 07/17/21 History simvastatin 20 mg tablet 20 mg PO HS 03/27/18 07/17/21 History triamterene 37.5 1 cap PO PM 03/27/18 07/17/21 History mg-hydrochlorothiazide 25 mg capsule valacyclovir 1 gram tablet 0.5 tab PO HS 03/27/18 07/17/21 History pantoprazole 40 mg tablet,delayed 40 mg PO QA 06/21/18 07/17/21 History release (Protonix) acetaminophen 650 mg 650 mg PO Q8H PRN tab 09/29/18 07/17/21 History tablet,extended release duloxetine 60 mg capsule,delayed 60 mg PO QA 07/31/20 07/17/21 History release multivitamin 1 tab PO QAM 08/30/20 07/17/21 History olmesartan 20 mg tablet 20 mg PO QA 08/30/20 07/17/21 History ondansetron 4 mg oral soluble film 4 mg PO QA 03/25/21 07/17/21 History rivaroxaban 15 mg tablet 15 mg PO QDD #90 tab 07/11/21 07/17/21 Rx phenazopyridine 100 mg tablet 100 mg PO BID PRN #7 tab 07/12/21 07/17/21 Rx (Pyridium) Keytruda Pill 1 tab PO DAILY 07/17/21 07/17/21 History lenvatinib 10 mg/day (10 mg x 1) 10 mg PO QPM 07/17/21 07/17/21 History capsule (Lenvima) Past Med/Surg History Medical History (Updated 07/18/21 @ 01:39 by Stefanie Salazar DO) Anemia s/p iron transfusions (last iron transfusion 2018) Atrial flutter Xarelto > no pacer > well controlled at present per pt follows with Dr. 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 Sadie Allen Surgical History H/O lumpectomy 2009 - Right Breast History of bilateral tubal ligation 1983 History of colonoscopy 2016 AND 2020 History of cystoscopy WITH STENT 12/17/2020: MAC. Anesthesia postop progress note: "The patient is awake and comfortable in recovery. Her vital signs are stable. The patient's SpO2 is 94 on room air but has dropped down to 89 when resting. She was given an incentive spirometer and is now maintaining her SpO2 in the 90s." 09/05/2020: MAC. No issues per anesthesia postop progress note. History of dilatation and curettage 2012, 06/21/2018 History of esophagogastroduodenoscopy (EGD) 03/2018 History of robot-assisted laparoscopic hysterectomy 08/12/18 - Bilateral Salpingo-oophorectomy bilateral pelvic, right para-aortic node sampling Nausea and vomiting after administration of anesthetic agent HX OF POST OP NAUSEA YRS AGO Family History Mother , Passed age 97 of stroke complications she had 11 years prior Stroke Father , Passed in low 70's of COPD/Emphysema Complications Emphysema of lung Sister Breast cancer, Onset Age: 65 Lumpectomy & Radiation - Alive and well now Sister No problems noted. Daughter No problems noted. Daughter No problems noted. Daughter No problems noted. Son No problems noted. Son No problems noted. 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 Feels Safe at Home: Yes Childhood Exposure to Second-Hand Smoke: Yes caffeine: Yes (Iced Tea ) Dental Care, Regularly: Yes Assistive Devices: Glasses Review of Systems Review of Systems: All systems reviewed & are unremarkable except as noted in HPI & below Physical Exam Physical Exam: General: patient resting comfortably, NAD, non-toxic in appearance, AA&O x 4 Skin: warm, dry, intact, no rashes or lesions HEENT: NC/AT, PERRL, EOMI, anicteric sclera, conjunctiva without injection, external ear normal to inspection and nontender, nares patent, moist mucus membranes, dentition intact, no oropharyngeal lesions, neck supple, trachea midline, no LAD, no thyromegaly, no JVD Heart: +S1/S2, regular, no m/r/g Lungs: equal air entry bilaterally, no rales/rhonchi/wheezes Abd: +BS, soft, NT/ND, no masses/organomegaly/ascites Ext: warm, 2+ pulses in UE/LE bilaterally, no clubbing/cyanosis or edema Neuro: nonfocal, patient AA&O x 4, speech intact, no facial droop, moving all extremities on command with equal strength 5/5 Results & Data Results & Data ([facility]) Vital Signs (Past 12 Hours) Vital Signs Temp Pulse Resp BP Pulse Ox 07/17/21 23:54 99 07/17/21 17:36 36.8 C 88 18 102/69 96 Laboratory Results Laboratory Results WBC 6.86 K/uL (4.8-10.8) 07/17/21 18:52 RBC 3.80 M/uL (4.2-5.4) L 07/17/21 18:52 Hgb 13.5 g/dL (12.0-16.0) 07/17/21 18:52 Hct 39.7 % (37-47) 07/17/21 18:52 MCV 104.5 fL (80-100) H 07/17/21 18:52 MCH 35.5 pg (25-34) H 07/17/21 18:52 MCHC 34.0 g/dL (32-36) 07/17/21 18:52 RDW Std Deviation 55.6 fL (36.4-46.3) H 07/17/21 18:52 RDW Coeff of Harley 14.5 % (11.5-14.5) 07/17/21 18:52 Plt Count 175 K/uL (130-400) 07/17/21 18:52 MPV 10.0 fL (7.4-10.4) 07/17/21 18:52 Immature Gran % (Auto) 0.1 % 07/17/21 18: Neut % (Auto) 79.8 % 07/17/21 18:52 Lymph % (Auto) 11.8 % 07/17/21 18:52 [place] % (Auto) 6.4 % 07/17/21 18:52 Eos % (Auto) 1.6 % 07/17/21 18:52 Baso % (Auto) 0.3 % 07/17/21 18:52 Neut # (Auto) 5.47 K/uL (1.4-6.5) 07/17/21 18:52 Lymph # (Auto) 0.81 K/uL (1.2-3.4) L 07/17/21 18:52 [place] # (Auto) 0.44 K/uL (0.11-0.59) 07/17/21 18:52 Eos # (Auto) 0.11 K/uL (0-0.5) 07/17/21 18:52 Baso # (Auto) 0.02 K/uL (0-0.2) 07/17/21 18:52 Immature Gran # (Auto) 0.01 K/uL (0.00-0.02) 07/17/21 18:52 PT 12.4 Seconds (9.0-12.0) H 07/17/21 18:52 INR 1.2 (0.9-1.1) H 07/17/21 18:52 APTT 38.5 Seconds (21.0-31.0) H 07/17/21 18:52 PTT Ratio 1.4 07/17/21 18:52 Sodium 138 mmol/L (136-145) 07/17/21 18:52 Potassium 3.8 mmol/L (3.5-5.1) 07/17/21 18:52 Chloride 101 mmol/L (98-107) 07/17/21 18:52 Carbon Dioxide 29 mmol/L (21-32) 07/17/21 18:52 Anion Gap 8 (3-11) 07/17/21 18:52 BUN 30 mg/dl (6-23) H 07/17/21 18:52 Creatinine 2.10 mg/dl (0.6-1.2) H 07/17/21 18:52 Est Cr Clr Drug Dosing 20.8 ml/min 07/17/21 18:52 Est GFR ( Amer) 24.8 ml/min 07/17/21 18:52 Est GFR (Non-Af Amer) 21.4 ml/min 07/17/21 18:52 BUN/Creatinine Ratio 14.3 (10-20) 07/17/21 18:52 Glucose 94 mg/dl (70-99(Fasting)) 07/17/21 18:52 Calcium 9.6 mg/dl (8.5-10.1) 07/17/21 18:52 Magnesium 1.4 mg/dl (1.7-2.4) L 07/17/21 18:52 Total Bilirubin 0.6 mg/dl (0.2-1.0) 07/17/21 18:52 AST 55 U/L (13-39) H 07/17/21 18:52 ALT 43 U/L (7-52) 07/17/21 18:52 Alkaline Phosphatase 45 U/L (34-104) 07/17/21 18:52 Troponin I High Sens 26.5 pg/ml (0-14) H 07/17/21 21:42 Total Protein 6.9 gm/dl (6.0-8.3) 07/17/21 18:52 Albumin 4.0 gm/dl (3.4-5.0) 07/17/21 18:52 Globulin 2.9 gm/dl (2.5-4.0) 07/17/21 18:52 Albumin/Globulin Ratio 1.4 (0.9-2) 07/17/21 18:52 SARS-CoV-2 (PCR) NEGATIVE (Negative) 07/17/21 21:35 Influenza Type A (PCR) Negative (Neg) 07/17/21 21:35 Influenza Type B (PCR) Negative (Neg) 07/17/21 21:35 RSV (RT-PCR) Negative (Neg) 07/17/21 21:35 Impressions Chest X-Ray 07/17/21 17:40 SINGLE VIEW CHEST CLINICAL HISTORY: Dyspnea. FINDINGS: An AP, portable, upright chest radiograph is compared to study dated 08/30/2020 and correlated with chest CT dated 07/16/2021. There is a moderate to large hiatal hernia. The cardiomediastinal silhouette is unremarkable. Foci of parenchymal scarring are seen throughout both lungs, greatest at the apices. There is no lobar consolidation or large pleural effusion. No pneumothorax is seen. The skeletal structures are osteopenic. The bony thorax is grossly intact. IMPRESSION: 1. No acute cardiopulmonary abnormality is identified. No significant change from yesterday's chest CT. 2. Moderate to large hiatal hernia. 3. Foci of parenchymal scarring are again seen throughout both lungs. ACT 112: Negative or not required by law. Electronically signed by: Rafa Buchanan M.D. 07/17/2021 7:08 PM Code Status & VTE Plan VTE Prophylaxis Plan VTE Prophylaxis will be ordered: Yes PG Care Time/CCT Total # of Minutes Spent Total Time Spent with Patient: Total time spent is greater than 50% in coordination of care (as documented) at patient's floor/unit and/or counseling patient: Coding Level of Care Code INT OBSERVATION CARE 50M LVL 2 Diagnoses CKD (chronic kidney disease), stage III N18.3 HTN (hypertension) I10 Dyslipidemia E78.5 Atrial flutter I48.92 Rigors R68.89 Endometrial cancer C54.1
--- NOTE | 2021-07-18 00:49 | Emergency Department Note ---
History of Present Illness General Chief complaint: Shortness of Breath/Dyspnea Stated complaint: CHILLS, SOB, DIARRHEA Time Seen by Provider: 07/17/21 21:09 History of Present Illness Provider complaint: Chills shortness of breath diarrhea Onset (ago): day(s) 1 Associated symptoms: + cough, + fever/chills and + shortness of breath; no chest pain, no headaches or no nausea/vomiting 81-year-old female with history of endometrial cancer on chemotherapy through [facility] oncology Dr. Finley presents emergency department with daughter for c hills, shortness of breath, diarrhea. Patient states that her symptoms began today. She reports no fevers. No abdominal pain. She reports some shortness of breath. No chest pain. No hemoptysis. Home Medications Medication Instructions Recorded Confirmed Type ascorbic acid (vitamin C) 1,000 mg 1 g PO QAM 03/27/18 07/17/21 History tablet (Vitamin C) levothyroxine 50 mcg tablet 50 mcg PO 2XWK 03/27/18 07/17/21 History levothyroxine 75 mcg tablet 75 mcg PO 5XWK 03/27/18 07/17/21 History magnesium oxide 400 mg PO QAM 03/27/18 07/17/21 History simvastatin 20 mg tablet 20 mg PO HS 03/27/18 07/17/21 History triamterene 37.5 1 cap PO PM 03/27/18 07/17/21 History mg-hydrochlorothiazide 25 mg capsule valacyclovir 1 gram tablet 0.5 tab PO HS 03/27/18 07/17/21 History pantoprazole 40 mg tablet,delayed 40 mg PO QAM 06/21/18 07/17/21 History release (Protonix) acetaminophen 650 mg 650 mg PO Q8H PRN tab 09/29/18 07/17/21 History tablet,extended release duloxetine 60 mg capsule,delayed 60 mg PO QAM 07/31/20 07/17/21 History release multivitamin 1 tab PO QAM 08/30/20 07/17/21 History olmesartan 20 mg tablet 20 mg PO QAM 08/30/20 07/17/21 History ondansetron 4 mg oral soluble film 4 mg PO QAM 03/25/21 07/17/21 History rivaroxaban 15 mg tablet 15 mg PO QDD #90 tab 07/11/21 07/17/21 Rx phenazopyridine 100 mg tablet 100 mg PO BID PRN #7 tab 07/12/21 07/17/21 Rx (Pyridium) Keytruda Pill 1 tab PO DAILY 07/17/21 07/17/21 History lenvatinib 10 mg/day (10 mg x 1) 10 mg PO QPM 07/17/21 07/17/21 History capsule (Lenvima) Allergies Allergy/AdvReac Type Severity Reaction Status Date / Time anastrozole AdvReac Intermediate Hip pain Verified 07/17/21 22:42 tamoxifen AdvReac Intermediate Uterine Verified 07/17/21 22:42 problems NSAIDS (Non-Steroidal AdvReac Mild Elevated Verified 07/17/21 22:42 Anti-Inflamma creatinine sulfamethoxazole AdvReac Mild Elevated Verified 07/17/21 22:42 creatinine trimethoprim AdvReac Mild Elevated Verified 07/17/21 22:42 creatinine Past Med/Surg History Medical History Anemia s/p iron transfusions (last iron transfusion 2018) Atrial flutter Xarelto > no pacer > well controlled at present per pt follows with Dr. 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 aSdie Allen Surgical History H/O lumpectomy 2009 - Right Breast History of bilateral tubal ligation 1983 History of colonoscopy 2016 AND 2020 History of cystoscopy WITH STENT 12/17/2020: MAC. Anesthesia postop progress note: "The patient is awake and comfortable in recovery. Her vital signs are stable. The patient's SpO2 is 94 on room air but has dropped down to 89 when resting. She was given an incentive spirometer and is now maintaining her SpO2 in the 90s." 09/05/2020: MAC. No issues per anesthesia postop progress note. History of dilatation and curettage 2013, 06/21/2018 History of esophagogastroduodenoscopy (EGD) 03/2018 History of robot-assisted laparoscopic hysterectomy 08/12/18 - Bilateral Salpingo-oophorectomy bilateral pelvic, right para-aortic node sampling Nausea and vomiting after administration of anesthetic agent HX OF POST OP NAUSEA YRS AGO Family History Mother , Passed age 97 of stroke complications she had 11 years prior Stroke Father , Passed in low 70's of COPD/Emphysema Complications Emphysema of lung Sister Breast cancer, Onset Age: 65 Lumpectomy & Radiation - Alive and well now Sister No problems noted. Daughter No problems noted. Daughter No problems noted. Daughter No problems noted. Son No problems noted. Son No problems noted. 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 Safe at Home: Yes Childhood Exposure to Second-Hand Smoke: Yes caffeine: Yes (Iced Tea ) Dental Care, Regularly: Yes Assistive Devices: Glasses Review of Systems A total of 10 systems reviewed and were otherwise negative Physical Exam Vital Signs Vital Signs - 24 hr 07/17/21 17:36 07/17/21 23:54 Temperature 36.8 C Temperature Source Skin Pulse Rate 88 Respiratory Rate 18 Blood Pressure 102/69 Blood Pressure Mean 80 Pulse Oximetry 96 99 Oxygen Delivery Method Room Air Room Air Sepsis Recent Fever Within 48 Hours No Sepsis New/Unexplained Change in Mental Status No Sepsis Action Taken by Nursing No Action Required Physical Exam GENERAL: She is oriented to person, place, and time. She appears well-developed and well-nourished. She does not appear distressed. HENT: Exam performed. -Head: Normocephalic and atraumatic. -Right Ear: External ear normal. No mastoid tenderness. -Left Ear: External ear normal. No mastoid tenderness. -Mouth/Throat: The oropharynx is clear and moist. No trismus in the jaw. No dental abscesses or uvula swelling. No oropharyngeal exudate or tonsillar abscesses. EYES: Conjunctivae and EOM are normal. Pupils are equal, round, and reactive to light. Right eye exhibits no discharge. Left eye exhibits no discharge. No scleral icterus. NECK: Normal range of motion. Neck supple. No JVD present. No spinous process tenderness present. No carotid bruit present. No rigidity. No tracheal deviation and normal range of motion present. No Brudzinski's sign and no Kernig's sign noted. CV: Normal rate, regular rhythm, normal heart sounds and intact distal pulses. There is no peripheral edema. Palpable radial pulses bue. PULM/CHEST: Effort normal and breath sounds normal. No respiratory distress. No stridor. She has no wheezes. She has no rales. -Chest Wall: She exhibits no tenderness. ABD: The abdomen is soft. Bowel sounds are normal. She has no distension. No mass is present. There is no tenderness. There is no rebound, no guarding, no Gerber's sign and no tenderness at McBurney's point. Rovsig negative MUSC/SKEL: Normal range of motion. There is no peripheral edema, tenderness or deformity. LYMPH: No cervical adenopathy. NEURO: She is alert and oriented to person, place, and time. She has normal strength. No cranial nerve deficit or sensory deficit. Coordination and gait normal. GCS eye subscore is 4. GCS verbal subscore is 5. GCS motor subscore is 6. Cerebellar tests wnl. SKIN: Skin is warm and dry. She is not diaphoretic. PSYCH: She has a normal mood and affect. Behavior is normal. Judgment and thought content normal. Course Course 2108: The patient was evaluated in room C8. A complete history and physical exam was performed Cardiac monitoring: An order was placed for continuous cardiac monitoring. The monitor shows a rate of 90 with sinus rhythm 2234: Vital signs stable. Labs show an elevated troponin as well as low magnesium. Patient currently reporting no chest pain and magnesium repletion started in the emergency department. COVID-19 swab is still pending. Patient will be admitted to the [facility] hospitalist team Dr. Salazar notified. Administered Medications Discontinued Medications Sodium Chloride (Nss 1000ml) 500 mls @ 999 mls/hr IV .Q31M ONE Stop: 07/17/21 21:47 Last Infusion: 07/17/21 23:53 Dose: 0 mls/hr Documented by: [id number] Admin: 07/17/21 21:55 Dose: 999 mls/hr Documented by: [id number] Magnesium Sulfate/Dextrose (Magnesium Sulfate / D5w) 1 gm in 100 mls @ 100 mls/hr IV NOW STA Stop: 07/17/21 22:17 Last Infusion: 07/17/21 23:53 Dose: 0 mls/hr Documented by: [id number] Admin: 07/17/21 21:55 Dose: 100 mls/hr Documented by: [id number] Medical Decision Making Laboratory Data Result diagrams: 07/17/21 18:52 07/17/21 18:52 Lab Results 07/17/21 07/17/21 07/17/21 Range/Units 18:52 18:52 18:52 WBC 6.86 (4.8-10.8) K/uL RBC 3.80 L (4.2-5.4) M/uL Hgb 13.5 (12.0-16.0) g/dL Hct 39.7 (37-47) % MCV 104.5 H (80-100) fL MCH 35.5 H (25-34) pg MCHC 34.0 (32-36) g/dL RDW Std Deviation 55.6 H (36.4-46.3) fL RDW Coeff of Harley 14.5 (11.5-14.5) % Plt Count 175 (130-400) K/uL MPV 10.0 (7.4-10.4) fL Immature Gran % (Auto) 0.1 % Neut % (Auto) 79.8 % Lymph % (Auto) 11.8 % Sabine % (Auto) 6.4 % Eos % (Auto) 1.6 % Baso % (Auto) 0.3 % Neut # (Auto) 5.47 (1.4-6.5) K/uL Lymph # (Auto) 0.81 L (1.2-3.4) K/uL Sabine # (Auto) 0.44 (0.11-0.59) K/uL Eos # (Auto) 0.11 (0-0.5) K/uL Baso # (Auto) 0.02 (0-0.2) K/uL Immature Gran # (Auto) 0.01 (0.00-0.02) K/uL PT 12.4 H (9.0-12.0) Seconds INR 1.2 H (0.9-1.1) APTT 38.5 H (21.0-31.0) Seconds PTT Ratio 1.4 Sodium 138 (136-145) mmol/L Potassium 3.8 (3.5-5.1) mmol/L Chloride 101 (98-107) mmol/L Carbon Dioxide 29 (21-32) mmol/L Anion Gap 8 (3-11) BUN 30 H (6-23) mg/dl Creatinine 2.10 H (0.6-1.2) mg/dl Est Cr Clr Drug Dosing 20.8 ml/min Est GFR ( Amer) 24.8 ml/min Est GFR (Non-Af Amer) 21.4 ml/min BUN/Creatinine Ratio 14.3 (10-20) Glucose 94 (70-99(Fasting)) mg/dl Calcium 9.6 (8.5-10.1) mg/dl Magnesium 1.4 L (1.7-2.4) mg/dl Total Bilirubin 0.6 (0.2-1.0) mg/dl AST 55 H (13-39) U/L ALT 43 (7-52) U/L Alkaline Phosphatase 45 (34-104) U/L Troponin I High Sens (0-14) pg/ml Total Protein 6.9 (6.0-8.3) gm/dl Albumin 4.0 (3.4-5.0) gm/dl Globulin 2.9 (2.5-4.0) gm/dl Albumin/Globulin Ratio 1.4 (0.9-2) 07/17/21 Range/Units 21:42 WBC (4.8-10.8) K/uL RBC (4.2-5.4) M/uL Hgb (12.0-16.0) g/dL Hct (37-47) % MCV (80-100) fL MCH (25-34) pg MCHC (32-36) g/dL RDW Std Deviation (36.4-46.3) fL RDW Coeff of Harley (11.5-14.5) % Plt Count (130-400) K/uL MPV (7.4-10.4) fL Immature Gran % (Auto) % Neut % (Auto) % Lymph % (Auto) % Sabine % (Auto) % Eos % (Auto) % Baso % (Auto) % Neut # (Auto) (1.4-6.5) K/uL Lymph # (Auto) (1.2-3.4) K/uL Sabine # (Auto) (0.11-0.59) K/uL Eos # (Auto) (0-0.5) K/uL Baso # (Auto) (0-0.2) K/uL Immature Gran # (Auto) (0.00-0.02) K/uL PT (9.0-12.0) Seconds INR (0.9-1.1) APTT (21.0-31.0) Seconds PTT Ratio Sodium (136-145) mmol/L Potassium (3.5-5.1) mmol/L Chloride (98-107) mmol/L Carbon Dioxide (21-32) mmol/L Anion Gap (3-11) BUN (6-23) mg/dl Creatinine (0.6-1.2) mg/dl Est Cr Clr Drug Dosing ml/min Est GFR ( Amer) ml/min Est GFR (Non-Af Amer) ml/min BUN/Creatinine Ratio (10-20) Glucose (70-99(Fasting)) mg/dl Calcium (8.5-10.1) mg/dl Magnesium (1.7-2.4) mg/dl Total Bilirubin (0.2-1.0) mg/dl AST (13-39) U/L ALT (7-52) U/L Alkaline Phosphatase (34-104) U/L Troponin I High Sens 26.5 H (0-14) pg/ml Total Protein (6.0-8.3) gm/dl Albumin (3.4-5.0) gm/dl Globulin (2.5-4.0) gm/dl Albumin/Globulin Ratio (0.9-2) Imaging Data Radiologist's Impression: Chest X-Ray 07/17/21 17:40 SINGLE VIEW CHEST CLINICAL HISTORY: Dyspnea. FINDINGS: An AP, portable, upright chest radiograph is compared to study dated 08/30/2020 and correlated with chest CT dated 07/16/2021. There is a moderate to large hiatal hernia. The cardiomediastinal silhouette is unremarkable. Foci of p arenchymal scarring are seen throughout both lungs, greatest at the apices. There is no lobar consolidation or large pleural effusion. No pneumothorax is seen. The skeletal structures are osteopenic. The bony thorax is grossly intact. IMPRESSION: 1. No acute cardiopulmonary abnormality is identified. No significant change from yesterday's chest CT. 2. Moderate to large hiatal hernia. 3. Foci of parenchymal scarring are again seen throughout both lungs. ACT 112: Negative or not required by law. Electronically signed by: Rafa Buchanan M.D. 07/17/2021 7:08 PM ECG Data Indication: + SOB/dyspnea Rate (beats per minute): 76 Rhythm: + normal sinus ECG Intervals/blocks: + Normal QRS, + Normal KS and + Normal QT-c ECG ST segments: + Normal ST segments MDM Narrative Vital signs stable. Labs show an elevated troponin as well as low magnesium. Patient currently reporting no chest pain and magnesium repletion started in the emergency department. COVID-19 swab is still pending. Patient will be admitted to the [facility] hospitalist team Dr. Salazar notified. Impression & Plan Hypomagnesemia, Elevated troponin Discharge Plan Visit Data Chief Complaint: Shortness of Breath/Dyspnea Stated Complaint: CHILLS, SOB, DIARRHEA Discharge Problem: Hypomagnesemia, Elevated troponin Patient Disposition: Being Evaluated by Hospitalist Forms Stand Alone Forms: My [facility] Prescriptions Prescriptions: No Action acetaminophen 650 mg tablet extended release 650 mg PO Q8H PRN (Reason: Pain) RF: 0 rivaroxaban 15 mg tablet 15 mg PO QDD Qty: 90 RF: 3 phenazopyridine [Pyridium] 100 mg tablet 100 mg PO BID PRN (Reason: pain) Qty: 7 RF: 0 duloxetine 60 mg capsule,delayed release(DR/EC) 60 mg PO QAM RF: 0 triamterene-hydrochlorothiazid 37.5-25 mg capsule 1 cap PO PM RF: 0 valacyclovir 1 gram tablet 0.5 tab PO HS RF: 0 levothyroxine 50 mcg tablet 50 mcg PO 2XWK RF: 0 magnesium oxide 400 mg magnesium Tablet 400 mg PO QAM RF: 0 simvastatin 20 mg tablet 20 mg PO HS RF: 0 ascorbic acid (vitamin C) [Vitamin C] 1,000 mg Tablet 1 g PO QAM RF: 0 levothyroxine 75 mcg tablet 75 mcg PO 5XWK RF: 0 pantoprazole [Protonix] 40 mg Tablet,Delayed Release (Dr/Ec) 40 mg PO QAM RF: 0 Lenvima 10 mg/day (10 mg x 1) capsule 10 mg PO QPM RF: 0 Keytruda Pill 1 tab PO DAILY RF: 0 olmesartan 20 mg Tablet 20 mg PO QAM RF: 0 multivitamin Tablet 1 tab PO QAM RF: 0 ondansetron 4 mg Film 4 mg PO QAM RF: 0 Referrals Referrals: Yoli Laureano DO [Primary Care Provider] -
[2021-07-18 00:51] LABS: Influenza A virus by PCR Negative (Neg); Influenza B virus by PCR Negative (Neg); RSV by PCR Negative (Neg); SARS CoV2 RNA(COVID-19) InHosp NEGATIVE (Negative)
[2021-07-18] MEDS ORDERED: ACETAMINOPHEN 325 MG TAB PO PRN (03:14)
[2021-07-18] MEDS ORDERED: ONDANSETRON INJ 2 MG/ML 2 ML VIAL IV PRN (03:14)
[2021-07-18] MEDS ORDERED: PHENAZOPYRIDINE HCL 100 MG TAB PO PRN (03:14)
[2021-07-18] MEDS: MAGNESIUM SULFATE / D5W 1 GM/100 ML BAG IV SCH ×3 (04:11→08:13)
[2021-07-18] MEDS: LACTATED RINGER'S 1,000 ML IV SCH ×2 (04:11→14:00)
[2021-07-18] MEDS ORDERED: LEVOTHYROXINE SODIUM 75 MCG TABLET PO SCH (06:30)
[2021-07-18 07:04] LABS: Troponin I High Sensitivity 22.3 pg/ml (0-14)
[2021-07-18 07:06] LABS: Magnesium 2.1 mg/dl (1.7-2.4)
[2021-07-18] MEDS: PANTOprazole 40 MG TAB PO SCH (08:14)
[2021-07-18] MEDS: DULoxetine HCL 60 MG CAP PO SCH (08:14)
[2021-07-18] MEDS: OLMESARTAN MEDOXOMIL 20 MG TAB PO SCH (08:14)
[2021-07-18] MEDS ORDERED: [UNRECOGNIZED DRUG - OTHER] PO SCH (09:00)
[2021-07-18 11:23] LABS: Appearance Urine Clear (Clear); Bacteria Urine Automated Negative (Negative); Bilirubin Urine Negative (Negative); Blood Urine 2+ (Negative); Color Urine Yellow; Epithelial Cell Urine Auto >30 /lpf (0-5); Glucose Urine UA Negative (Negative); Ketones Urine Negative (Negative); Leukocyte Esterase Urine 2+ (Negative); Nitrite Urine Negative (Negative); Protein Urine Trace (Negative); Specific Gravity Urine 1.006 (1.000-1.030); Urobilinogen Urine Negative (Negative)
[2021-07-18 11:43] LABS: RBC Urine Automated 0-4 /hpf (0-4)
--- NOTE | 2021-07-18 12:23 | Electrocardiogram Report ---
Test Reason : Blood Pressure : / mmHG Vent. Rate : 089 BPM Atrial Rate : 249 BPM P-R Int : 000 ms QRS Dur : 062 ms QT Int : 350 ms P-R-T Axes : 000 -13 100 degrees QTc Int : 425 ms Poor data quality, interpretation may be adversely affected Atrial flutter with variable A-V block with premature ventricular or aberrantly conducted complexes possible Inferior infarct , age undetermined Poor R wave progression, consider anterior AK vs. lead placement vs. LVH Abnormal ECG When compared with ECG of 30-AUG-2020 11:53, Atrial flutter has replaced Sinus rhythm Nonspecific T wave abnormality, worse in Inferior leads Nonspecific T wave abnormality, worse in Lateral leads Confirmed by Jose Sena ([id number]) on 07/18/2021 12:23:14 PM Referred By: Kennedy Finley Confirmed By:Geovani Sena
[2021-07-18 12:57] LABS: Adenovirus PCR Not Detected (NotDetected); Bordetella parapertussis PCR Not Detected (NotDetected); Bordetella pertussis PCR Not Detected (NotDetected); Chlamydia pneumoniae PCR Not Detected (NotDetected); Coronavirus 229E PCR Not Detected (NotDetected); Coronavirus CoV-2 (COVID19)PCR Not Detected (NotDetected); Coronavirus HKU1 PCR Not Detected (NotDetected); Coronavirus NL63 PCR Not Detected (NotDetected); Coronavirus OC43PCR Not Detected (NotDetected); Human Metapneumovirus PCR Not Detected (NotDetected); Influenza A PCR Not Detected (NotDetected); Influenza B PCR Not Detected (NotDetected); Mycoplasma pneumoniae PCR Not Detected (NotDetected); Parainfluenza Virus 1 PCR Not Detected (NotDetected); Parainfluenza Virus 2 PCR Not Detected (NotDetected); Parainfluenza Virus 3 PCR Not Detected (NotDetected); Parainfluenza Virus 4 PCR Not Detected (NotDetected); Respiratory Syncytial VirusPCR Not Detected (NotDetected); Rhinovirus/Enterovirus PCR Not Detected (NotDetected)
[2021-07-18 13:14] LABS: Lyme Ab IgG w/WB Rflx Negative (Negative); Lyme Ab IgM w/WB Rflx Negative (Negative)
[2021-07-18 13:15] LABS: Folate (Folic Acid) > 22.30 ng/ml (>5.38)
[2021-07-18 13:16] LABS: Vitamin B12 > 1500 pg/ml (180-914)
[2021-07-18] MEDS ORDERED: RIVAROXABAN 15 MG TAB PO SCH (16:30)
[2021-07-18] MEDS ORDERED: TRIAMTERENE/HCTZ 37.5/25MG CAP PO SCH (16:30)
--- NOTE | 2021-07-18 18:23 | Communication Note ---
Date of Service: July 18, 2021 Patient seen on daily rounds today. She was hospitalized with repetitive rigors. She has not had any reported fevers. Denies respiratory symptoms but does report ulcers in her mouth. Claims this has been ongoing off and on X years. Denies nasal congestion, sore throat, change in her smell/taste, cough, shortness of breath, abdominal pain, nausea, vomiting, dysuria, hematuria, frequency. Does report urgency in stooling and frequent loose stools that started approximately 1 month ago. No recent antibiotic use. No ill contacts at home. No skin lesions or rashes. Did recently have a stent exchange but again, no urinary complaints Denies any recent injections/vaccines. White count was normal. Creatinine was slightly elevated 2.1 but patient with underlying CKD (baseline 1.7-2.1). CXR: No acute cardiopulmonary process Urine dip performed and cloudy but urine microscopic not performed. Urine culture not performed. Both of these have since been ordered. CT of the chest shows diffuse scarring and groundglass opacities but again no respiratory symptoms. Patient is hemodynamically stable and afebrile General: Resting comfortably in her hospital bed. She does not appear ill or toxic. NAD. HEENT: Head is AT/NC. Buccal mucosa is moist and pink. 2 ulcerated lesions on the tip of the tongue but no other abnormality noted. Buccal mucosa without exudate. Neck: No JVD. Negative hepatojugular reflex Cardiac: RRR with 2/6 CARLOS Lungs: CTA without W/R/R. Breathing comfortably on ambient air. Normal respiratory effort. Abdomen: Normoactive X4. Soft and nontender in all quadrants. Extremities: No peripheral clubbing cyanosis or edema. No right upper quadrant tenderness. Negative Gerber sign. Neuro: A&O X4. Cranial nerves II through XII are grossly intact. No focal neuro deficits Skin: No obvious skin lesions or rashes. No evidence of cellulitis or skin breakdown Psych: Appropriate affect. Pleasant and cooperative Patient hospitalized with rigors and mild TRACY (on CKD) No obvious source of infection. No antibiotics on board. Continue to hold off at this point Given her loose stools, will add stool for C. difficile and stool culture/PCR Bio fire added No obvious source of infection Uncertain if symptoms are perhaps related to her ongoing Keytruda. I did discuss this with patient's established oncologist (Dr. Finley) who agrees with plan of care. He requested an updated echocardiogram given the findings seen on her CT scan. He reiterates that these findings are chronic ongoing for the past 6 months and perhaps related to her Keytruda. Can consider pulmonology consult versus referral as an outpatient Plan of care to be discussed with Dr. Cortez. Further orders as warranted.
[2021-07-18] MEDS ORDERED: SIMVASTATIN 20 MG TAB PO SCH (21:00)
[2021-07-18] MEDS ORDERED: valACYclovir HCL 500 MG TABLET PO SCH (21:00)
[2021-07-19 06:30] LABS: Basophils # (auto) 0.02 K/uL (0-0.2); Basophils % (auto) 0.5 %; Eosinophils # (auto) 0.14 K/uL (0-0.5); Eosinophils % (auto) 3.8 %; Hematocrit (blood only) 35.3 % (37-47); Hemoglobin 11.8 g/dL (12.0-16.0); Immature Granulocytes # (auto) 0.01 K/uL (0.00-0.02); Immature Granulocytes % (auto) 0.3 %; Lymphocytes # (auto) 0.69 K/uL (1.2-3.4); Lymphocytes % (auto) 18.6 %; Mean Corpuscular Hemoglobin 34.2 pg (25-34); Mean Corpuscular Hgb Conc 33.4 g/dL (32-36); Mean Corpuscular Volume 102.3 fL (80-100); Monocytes # (auto) 0.42 K/uL (0.11-0.59); Monocytes % (auto) 11.3 %; Neutrophils # (auto) 2.43 K/uL (1.4-6.5); Neutrophils % (auto) 65.5 %; Platelet Count 169 K/uL (130-400); RDW Coefficient of Variation 14.6 % (11.5-14.5); Red Blood Count 3.45 M/uL (4.2-5.4); White Blood Count 3.71 K/uL (4.8-10.8)
[2021-07-19] MEDS ORDERED: LEVOTHYROXINE SODIUM 50 MCG TABLET PO SCH (06:30)
[2021-07-19 06:43] LABS: Albumin Level 3.3 gm/dl (3.4-5.0); BUN Creatinine Ratio 15.5 (10-20); Bilirubin Direct 0.1 mg/dl (0-0.2); Bilirubin,Total 0.5 mg/dl (0.2-1.0); Calcium 9.3 mg/dl (8.5-10.1); Creatinine Clr Calc Pharmacy 27.2 ml/min; Est GFR (African American) 34.2 ml/min; Est GFR (Non-African American) 29.5 ml/min; Potassium 4.1 mmol/L (3.5-5.1); Total Protein 5.6 gm/dl (6.0-8.3)
[2021-07-19 08:05] VITALS: BP 128/74; PULSE 72; TEMP 97.7; O2SAT 96
[2021-07-19] MEDS: PANTOprazole 40 MG TAB PO SCH (09:32)
[2021-07-19] MEDS: OLMESARTAN MEDOXOMIL 20 MG TAB PO SCH (09:32)
[2021-07-19] MEDS: DULoxetine HCL 60 MG CAP PO SCH (09:32)
--- NOTE | 2021-07-19 11:38 | Discharge Summary ---
Date of Service July 19, 2021 Admission HPI Per Admitting Provider Mrs. Pabon is an 81-year-old female with history of endometrial cancer presently on Keytruda and lenvatinib therapy presenting with 2 days of chills and rigors. Patient reports that she had a CT scan performed 2 days ago for routine screening purposes. She first felt cold with some body shakes there but attributed it to the cold room in which she was waiting. After the study she returned home and went to bed at 8 PM. She woke at 11:00 PM with body shakes and chills. She is also had several episodes of watery diarrhea as well as shortness of breath. She denies fever and states that her body temperature is actually slightly lower than normal approximately 97.1. No additional complaints at this time. Patient did have a cystoscopy on 07/11/2021 with right retrograde pyelogram and stent exchange performed by urology. The procedure was well-tolerated without complications. In the ER she is afebrile, hemodynamically stable, no acute distress Principal Diagnosis 1. ? Viral syndrome versus ill effects from chemotherapy agent 2. Diarrhearesolved 3. Rigorsresolved Discharge Exam General: Resting comfortably in her hospital bed. Appears younger than stated age. She does not appear ill or toxic. NAD. HEENT: Head is AT/NC. Buccal mucosa is moist and pink Neck: No JVD. Negative hepatojugular reflex Cardiac: RRR with 1/6 to 2/6 CARLOS Lungs: CTA without W/R/R Abdomen: Normoactive X4. Soft and nontender in all quadrants. Extremities: No peripheral clubbing cyanosis or edema Neuro: A&O X4. Cranial nerves II through XII are grossly intact. No focal neuro deficits Skin: No obvious skin lesions or rashes Psych: Appropriate affect. Pleasant and cooperative Discharge Data Allergies Allergy/AdvReac Type Severity Reaction Status Date / Time anastrozole AdvReac Intermediate Hip pain Verified 07/17/21 22:42 tamoxifen AdvReac Intermediate Uterine Verified 07/17/21 22:42 problems NSAIDS (Non-Steroidal AdvReac Mild Elevated Verified 07/17/21 22:42 Anti-Inflamma creatinine sulfamethoxazole AdvReac Mild Elevated Verified 07/17/21 22:42 creatinine trimethoprim AdvReac Mild Elevated Verified 07/17/21 22:42 creatinine Consultations 05/18/22 22:37 ED Decision to Admit Stat Procedures Performed CXR: No acute cardiopulmonary process CT of the chest done 07/16 prior to this hospitalization: IMPRESSION: 1. No evidence of metastatic disease above the diaphragm. 2. Diffuse scarring and pulmonary hypertension. There are a few foci of grou ndglass, infectious/inflammatory process cannot be excluded. CT of the abdomen and pelvis done 07/16 prior to this hospitalization: IMPRESSION: 1. There is no evidence of metastatic disease in the abdomen or pelvis on this unenhanced examination. 2. A right ureteral stent is in appropriate position. No calcifications are identified in the right ureter along the course of the stent. 3. Moderate to large hiatal hernia. 4. There are small foci of gas within the right renal pelvis and within the bladder lumen. Correlate with urinalysis --> likely given recent pyelogram with stent exchange 5. Additional findings as above. Hospital Course (1) Rigors: Multiple episodes of rigors prior to hospitalization Patient afebrile. Mild leukopenia (but on chemotherapy and likely chemotherapy-induced as chronic with review of old records). No leukocytosis. No shift on differential. CT of the chest shows groundglass opacities but unchanged over the past 6 months. Likely related to Keytruda. Patient without respiratory symptoms CT of the abdomen and pelvis nonacute Patient without skin lesions/rashes. No respiratory symptoms or symptoms Patient did have recent ureteral stent exchange but urinalysis is not grossly infected. Urine culture showing no growth to date. Patient was complaining of diarrhea for which stool studies were ordered but now admits that she was on stool softeners prior to this hospitalization. No diarrhea since. No recent vaccinations given Could have potentially had a mild viral syndrome but unable to differentiate this versus symptoms being ill effects from chemotherapy agents Did discuss with Dr. Finley (patient's established oncologist). Plan is to hold Keytruda and Lenvima. Patient to follow-up with oncology for further evaluation and plan (2) Diarrhea: Unlikely infectious as patient admits to taking stool softeners prior to this hospitalization Did have associated acute on chronic renal insufficiency Would advise withholding stool softeners. Did discuss this with patient (3) TRACY (acute kidney injury): Presenting creatinine was 2.1. Baseline seems to run~1.7 Improved with IV hydration Likely exacerbated by frequent loose stools which have since stopped. Hold off on additional stool softeners Recommend follow-up labs next week. If persistent, may consider transition of triamterene HCTZ to alternative medication for BP control. This is at the discretion of PCP (4) Endometrial cancer: On Keytruda and Lenvima. Both of these should be held until further assessed by established oncologist to determine need for resumption versus change of treatment plan Patient does have ongoing groundglass opacities seen in the lung without S/S infection. In discussion with Dr. Finley (established oncologist), these are chronic and present for at least the last 6 months Groundglass opacities may be related to Keytruda. Again, may need to consider transition of this medication. Consider pulmonology referral as an outpatient if warranted (5) HTN (hypertension): Controlled. Continue triamterene HCTZ and olmesartan as prior to hospitalization Recommend follow-up metabolic panel next week to further trend renal function. Based on results, may need to transition home BP regimenat discretion of PCP (6) Atrial flutter: Currently in a sinus rhythm with controlled ventricular rate Continue Xarelto as prior to hospitalization Patient is medically and hemodynamically stable for discharge to home. Plan of care was discussed with and patient seen and agreed upon by Dr. Cortez. Patient to follow-up with oncologist next week. Patient to follow-up with PCP within 7 to 10 days. Return to ED for any new or worsening symptoms Total Time Total Time Spent Total Time Spent (In Minutes): 30 minutes Discharge Plan Discharge Items Patient Disposition: Home - Self-Care Reason For Visit: RIGORS, DIARRHEA Discharge Diagnosis: 1. ? Viral Syndrome vs ill effects from immunotherapy/chemotherapy Activity: Resume your previous activity Non-emergency contact: Primary Care Provider and Oncologist Call non-emergency contact if: you have any medication questions and you have a fever Follow-up/Referrals: Yoli Laureano DO [Primary Care Provider] - Diet: Heart Healthy Addtl Attending Provider Instructions: You were hospitalized with chills/rigors and diarrhea No obvious source of infection identified. I suspect that your symptoms may be related to an underlying viral syndrome but I cannot rule out that your symptoms are not ill effects from your oral chemotherapy agents. You have not had any symptoms since hospitalization. Your loose stools very well could be a viral exanthem but you also admit to taking stool softeners which could cause loose stools/diarrhea. The diarrhea was causing dehydration and affecting your renal function. Would avoid stool softeners at this point and continue to push your fluids. Recommend follow-up labs next week to trend your renal functionat discretion of PCP and/or oncologist Hold Keytruda and Lenvima (chemotherapy agents). This will suppress your immune system and if your symptoms were related to an underlying infectious process, we do not want your immune system further suppressed. In addition, I am uncertain if this is potentially the cause of your symptoms. At any rate, I did discuss this with your oncologist (Dr. Finley) who agrees that you should hold this medication for now. You are to follow-up with him in the clinic to determine best course of action moving forward. Return to the emergency department if you develop new or worsening symptoms Follow-up with your PCP within 7 to 10 days Pending Studies at Discharge: No Stand-Alone Forms: My [facility] Medications and DC Order Prescriptions: Continued acetaminophen 650 mg tablet extended release 650 mg PO Q8H PRN (Reason: Pain) RF: 0 rivaroxaban 15 mg tablet 15 mg PO QDD Qty: 90 RF: 3 phenazopyridine [Pyridium] 100 mg tablet 100 mg PO BID PRN (Reason: pain) Qty: 7 RF: 0 duloxetine 60 mg capsule,delayed release(DR/EC) 60 mg PO QAM RF: 0 triamterene-hydrochlorothiazid 37.5-25 mg capsule 1 cap PO PM RF: 0 valacyclovir 1 gram tablet 0.5 tab PO HS RF: 0 levothyroxine 50 mcg tablet 50 mcg PO 2XWK RF: 0 magnesium oxide 400 mg magnesium Tablet 400 mg PO QAM RF: 0 simvastatin 20 mg tablet 20 mg PO HS RF: 0 ascorbic acid (vitamin C) [Vitamin C] 1,000 mg Tablet 1 g PO QAM RF: 0 levothyroxine 75 mcg tablet 75 mcg PO 5XWK RF: 0 pantoprazole [Protonix] 40 mg Tablet,Delayed Release (Dr/Ec) 40 mg PO QAM RF: 0 olmesartan 20 mg Tablet 20 mg PO QAM RF: 0 multivitamin Tablet 1 tab PO QAM RF: 0 ondansetron 4 mg Film 4 mg PO QAM RF: 0 Discontinued Lenvima 10 mg/day (10 mg x 1) capsule 10 mg PO QPM RF: 0 Keytruda Pill 1 tab PO DAILY RF: 0 Discharge Orders: Discharge Order (Routine); Ordered 07/19/21 Ordered By: Ginger Durham Admission Data Admit Date/Time: 07/18/21 00:08 Attending Provider: Freedom Cortez Admit Provider: Stefanie Salazar Primary Care Provider: Yoli Laureano Other Providers: Stefanie Salazar Coding Level of Care Code 09387 OBS Care - Discharge Diagnoses Rigors R68.89 Diarrhea R19.7 Endometrial cancer C54.1 HTN (hypertension) I10 Atrial flutter I48.92 TRACY (acute kidney injury) N17.9
--- NOTE | 2021-07-19 17:33 | XCELERA ---
[id number]
== END 2021-07-19 14:02 | disposition home or self-care (01) ==
LOC: 3N 17:25 → ED 17:25 → SUATTDRO 07-18 00:08 → 3N 07-18 02:06